=== PATIENT | female | born 1965 | race Caucasian/White ===

== ENCOUNTER 2017-08-16 13:07 | Emergency (ER) | payer OTHER ==
--- NOTE | 2017-08-16 15:14 | RAD REPORT ---
EXAM DESCRIPTION: RAD - Chest Single View - 08/16/2017 2:33 pm CLINICAL HISTORY: Possible foreign body, chest pain COMPARISON: May 2016 TECHNIQUE: AP portable chest image was obtained 1428 hours . FINDINGS: Lungs are clear. Heart and vasculature are normal. No measurable pleural effusion and no p neumothorax. No gross bony abnormality seen. No acute aortic findings suspected. IMPRESSION: No acute cardiopulmonary process. No significant interval change.
--- NOTE | 2017-08-16 15:16 | RAD REPORT ---
EXAM DESCRIPTION: RAD - Neck Soft Tissue - 08/16/2017 2:33 pm CLINICAL HISTORY: Neck pain, possible foreign body ingestion COMPARISON: None. TECHNIQUE: Frontal lateral views of the neck were obtained. FINDINGS: No prevertebral soft tissue thickening. No foreign body or abnormal air density. Epiglot tis is normal. Tonsillar and adenoid tissue within normal limits as well. Prominent physiologic randi cifications are present around the larynx. No acute bone findings seen. Patient has scoliosis involvi ng the cervical and upper thoracic spine. An acute bone process is not suspected. IMPRESSION: No foreign body or other acute finding.
--- NOTE | 2017-08-16 15:33 | EDPHYS ---
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 15:22 The patient presents to the emergency department with paranoia. Onset: The rn symptoms/episode began/occurred at an unknown time. Severity of symptoms: At their worst the symptoms were moderate in the emergency department the symptoms are unchanged. The patient has not experienced similar symptoms in the past. Patient reports last night felt like was having fiberoptic cables come out of her throat and was choking her, feels like there was fishing wire coming out of her chin, denies suicidal ideation, no hallucinations, reports chronic user of oxycodone, has been out for a few days, sees her pain management doctor in a few days. No head injury. States repeatedly she is not crazy and just needs an xray to make sure nothing is inside of her. . 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 - Social history:: Smoking status: Patient uses tobacco products, smokes one pack cigarettes per day. Patient/guardian denies using alcohol, street drugs. - Ebola Screening: : Patient negative for fever greater than or equal to 101.5 degrees Fahrenheit, and additional compatible Ebola Virus Disease symptoms. - Family history:: not pertinent. - Hospitalizations: : No recent hospitalization is reported. ROS: 15:22 Constitutional: Negative for fever, chills, and weight loss, Eyes: Negative for injury, rn pain, redness, and discharge, Neck: Negative for injury, pain, and swelling, Cardiovascular: Negative for chest pain, palpitations, and edema, Respiratory: Negative for shortness of breath, cough, wheezing, and pleuritic chest pain, Abdomen/GI: Negative for abdominal pain, nausea, vomiting, diarrhea, and constipation, Back: Negative for injury and pain, MS/Extremity: Negative for injury and deformity, Skin: Negative for injury, rash, and discoloration, Neuro: Negative for headache, weakness, and seizure, Psych: Negative for depression, anxiety, suicide ideation, homicidal ideation, and hallucinations. Exam: 15:22 Constitutional: This is a well developed, well nourished patient who is awake, alert, rn and in no acute distress, mildly agitated, scratching skin Head/Face: Normocephalic, atraumatic. Eyes: Pupils equal round and reactive to light, extra-ocular motions intact. Lids and lashes normal. Conjunctiva and sclera are non-icteric and not injected. Cornea within normal limits. Periorbital areas with no swelling, redness, or edema. Neck: Trachea midline, no thyromegaly or masses palpated, and no cervical lymphadenopathy. Supple, full range of motion without nuchal rigidity, or vertebral point tenderness. No Meningismus. Cardiovascular: Regular rate and rhythm with a normal S1 and S2. No gallops, murmurs, or rubs. Normal PMI, no JVD. No pulse deficits. Respiratory: Lungs have equal breath sounds bilaterally, clear to auscultation and percussion. No rales, rhonchi or wheezes noted. No increased work of breathing, no retractions or nasal flaring. Abdomen/GI: Soft, non-tender, with normal bowel sounds. No distension or tympany. No guarding or rebound. No evidence of tenderness throughout. Skin: multiple excoriations and healed sores all over body. MS/ Extremity: Pulses equal, no cyanosis. Neurovascular intact. Full, normal range of motion. Equal circumference. Neuro: Awake and alert, GCS 15, oriented to person, place, time, and situation. Cranial nerves II-XII grossly intact. Motor strength 5/5 in all extremities. Sensory grossly intact. Cerebellar exam normal. Normal gait. Vital Signs: 13:20 BP 172 / 92; Pulse 99; Resp 17; Temp 97.7; Pulse Ox 100% on R/A; Weight 68.04 kg; aj Height 5 ft. 8 in. (172.72 cm); 13:20 Body Mass Index 22.81 (68.04 kg, 172.72 cm) aj MDM: 13:58 Patient medically screened. rn 15:22 Differential diagnosis: drug withdrawal. acute psychotic break. Data reviewed: vital rn signs, nurses notes, lab test result(s), and as a result, I will discharge patient. Counseling: I had a detailed discussion with the patient and/or guardian regarding: the historical points, exam findings, and any diagnostic results supporting the discharge/admit diagnosis, radiology results, the need for outpatient follow up, to return to the emergency department if symptoms worsen or persist or if there are any questions or concerns that arise at home. Special discussion: I discussed with the patient/guardian in detail that at this point there is no indication for admission to the hospital. It is understood, however, that if the symptoms persist or worsen the patient needs to return immediately for re-evaluation. ED course: Most likely mild withdrawal from narcotics, no psych history but psychomotor agitation along with narcotic use, scratching/sores. Will dc home. Not suicidal/homicidal. No new meds. No trauma. Stable vitals. . 08/16 14:10 Order name: XRAY Neck Soft Tissue; Complete Time: 15:22 rn 08/16 14:10 Order name: XRAY Chest (1 view); Complete Time: 15:22 rn Administered Medications: No medications were administered Disposition: 08/16/17 15:32 Discharged to Home. Impression: Foreign Body sensation in throat. - Condition is Stable. - Medication Reconciliation Form, Thank You Letter, Antibiotic Education, Prescription Opioid Use form. - Follow up: Private Physician; When: As needed; Reason: Recheck today's complaints, Re-evaluation by your physician. - Problem is new. - Symptoms have improved. Signatures: Dispatcher [employer] EDMS Loree Cabrera RN RN aj Nieto, Roman, MD MD rn Seth, Rhonda rs2 Corrections: (The following items were deleted from the chart) 15:47 15:32 08/16/2017 15:32 Discharged to Home. Impression: Foreign Body sensation in rs2 throat. Condition is Stable. Forms are Medication Reconciliation Form, Thank You Letter, Antibiotic Education, Prescription Opioid Use. Follow up: Private Physician; When: As needed; Reason: Recheck today's complaints, Re-evaluation by your physician. Problem is new. Symptoms have improved. rn
--- NOTE | 2017-08-16 15:33 | ER ---
Nurse's Notes [facility] Name: Sophia Blanco Age: 52 yrs Sex: Female : 1965 Arrival Date: 08/16/2017 Time: 13:11 Bed 27 Private MD: None, None Diagnosis: Foreign Body sensation in throat Presentation: 08/16 13:18 Presenting complaint: Patient states: "fiber optics are coming out of my throat and I aj feel like metal is floating in my throat. It has been letting off these fumes". Patient has been out of her oxycodone since Monday. Transition of care: patient was not received from another setting of care. Onset of symptoms was August 11, 2017. Care prior to arrival: None. 13:18 Method Of Arrival: Ambulatory aj 13:18 Acuity: BENNY 2 aj 15:20 Risk Assessment: Do you want to hurt yourself or someone else? Patient reports no rs2 desire to harm self or others. Initial Sepsis Screen: Does the patient meet any 2 criteria? No. Patient's initial sepsis screen is negative. Does the patient have a suspected source of infection? No. Patient's initial sepsis screen is negative. Triage Assessment: 13:20 General: Appears in no apparent distress. comfortable, Behavior is calm, cooperative, aj appropriate for age. Pain: Complains of pain in neck. Neuro: Level of Consciousness is awake, obeys commands, Oriented to person, place, time, situation. Respiratory: Airway is patent Respiratory effort is even, unlabored, Respiratory pattern is regular, symmetrical. Derm: Skin is intact, is healthy with good turgor, Skin is pink, warm \\T\\ dry. normal. 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 - Social history:: Smoking status: Patient uses tobacco products, smokes one pack cigarettes per day. Patient/guardian denies using alcohol, street drugs. - Ebola Screening: : Patient negative for fever greater than or equal to 101.5 degrees Fahrenheit, and additional compatible Ebola Virus Disease symptoms. - Family history:: not pertinent. - Hospitalizations: : No recent hospitalization is reported. Screenin:44 Abuse screen: Denies threats or abuse. Nutritional screening: No deficits noted. rs2 Tuberculosis screening: No symptoms or risk factors identified. Fall Risk None identified. Assessment: 14:44 General: Appears in no apparent distress. comfortable, unkempt, Behavior is calm, rs2 cooperative, inappropriate for age, Pt describes "Chains and fiber optic tubes that they put in me at [facility]. I can feel them in my neck and my veins." Pt is oriented to self, time and place. Pt denies suicidal ideation. Pt is calm and cooperative. . Pain: Denies pain. Neuro: No deficits noted. Cardiovascular: No deficits noted. Respiratory: No deficits noted. GI: No deficits noted. : No deficits noted. EENT: No deficits noted. Musculoskeletal: No deficits noted. Psych: 15:21 Subjective: Patient's mood is Pt is calm and cooperative. Objective: Patient is rs2 cooperative, Speech is normal, Affect is appropriate. Interventions: Patient placed in hospital gown. Suicide Risk Assessment: Sad Person Scale: Sex of patient: Female: Score 0 points. Age of patient: Score 0 point if patient falls outside of specified age parameters. Depression: Score 0 point if signs of depression are not present. Previous Attempt: Score 0 point if patient has not previously attempted suicide. Safety Checks: Door is open. Door is closed to patient's room. Pt denies substance abuse. Commitment: Pt denies. Vital Signs: 13:20 BP 172 / 92; Pulse 99; Resp 17; Temp 97.7; Pulse Ox 100% on R/A; Weight 68.04 kg; aj Height 5 ft. 8 in. (172.72 cm); 13:20 Body Mass Index 22.81 (68.04 kg, 172.72 cm) aj ED Course: 13:11 Patient arrived in ED. sb2 13:11 None, None is Private Physician. sb2 13:19 Triage completed. aj 13:20 Arm band placed on left wrist. Patient placed in waiting room, Patient notified of wait aj time Patient Patient with family member. 13:58 Adolfo Resendez MD is Attending Physician. rn 14:30 X-ray completed. Portable x-ray completed in exam room. Patient tolerated procedure jb2 well. 14:31 XRAY Neck Soft Tissue In Process Unspecified. EDMS 14:31 XRAY Chest (1 view) In Process Unspecified. EDMS 14:43 Abiola Smallwood is Primary Nurse. rs2 14:44 Patient has correct armband on for positive identification. Bed in low position. Call rs2 light in reach. Side rails up X 1. 15:46 No provider procedures requiring assistance completed. Patient did not have IV access rs2 during this emergency room visit. Administered Medications: No medications were administered Outcome: 15:32 Discharge ordered by MD. rn 15:46 Discharged to home ambulatory. rs2 15:46 Condition: good 15:46 Discharge instructions given to patient, Instructed on discharge instructions, Demonstrated understanding of instructions. 15:47 Patient left the ED. rs2 Signatures: Dispatcher [employer] Loree Younger RN RN aj Buechter, Jesse jb2 Adolfo Resendez MD MD rn Seth, Rhonda rs2 Chuyita Mcnamara sb2 Corrections: (The following items were deleted from the chart) 13:22 13:20 Arm band placed on left wrist. Patient placed in an exam room, all carrizales
== END 2017-08-16 15:47 | disposition home or self-care (01) ==
LOC: ER 13:07
DX: R09.89 Other specified symptoms and signs involving the circulatory and respiratory systems (principal)
CPT/HCPCS: 70360; 71045; 99283

== ENCOUNTER 2017-08-23 10:07 | Emergency (ER) | payer OTHER ==
--- NOTE | 2017-08-23 10:58 | EDPHYS ---
Physician Documentation [facility] Name: Sophia Blanco Age: 52 yrs Sex: Female : 1965 Arrival Date: 08/23/2017 Time: 10:10 Bed 17 Private MD: None, None ED Physician Arian Villagran HPI: 08/23 11:26 This 52 yrs old Female presents to ER via Ambulatory with complaints of Leech snw Bites. 11:26 The patient's rash thought to be caused by Dermatitis Contact allergy. The rash is snw located on the suprasternal notch, right sternocleidomastoid, left sternocleidomastoid, right posterior aspect of neck, right lateral aspect of neck, left posterior aspect of neck and left lateral aspect neck,scalp. The rash can be described as patchy, oozing. Onset: The symptoms/episode began/occurred acutely, 1 month(s) ago. Associated signs and symptoms: Pertinent positives: burning sensation, itching. Severity of symptoms: At their worst the symptoms were severe in the emergency department the symptoms are unchanged. It is unknown whether or not the patient has recently seen a physician. 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 - Social history:: Smoking status: Patient uses tobacco products, smokes one-half pack cigarettes per day. - Ebola Screening: : No symptoms or risks identified at this time. ROS: 11:23 Constitutional: Negative for fever, chills, and weight loss, pt swears she has leeches snw breathing into and out of her. anxious Eyes: Negative for injury, pain, redness, and discharge, ENT: Negative for injury, pain, and discharge, Cardiovascular: Negative for chest pain, palpitations, and edema, Respiratory: Negative for shortness of breath, cough, wheezing, and pleuritic chest pain, Abdomen/GI: Negative for abdominal pain, nausea, vomiting, diarrhea, and constipation, Back: Negative for injury and pain, : Negative for injury, bleeding, discharge, and swelling, MS/Extremity: Negative for injury and deformity, Neuro: Negative for headache, weakness, numbness, tingling, and seizure. 11:23 Neck: Positive for rash, itching and feeling movements at neck and head. 11:23 Skin: Positive for rash, "leeches are crawling on and breathing out of me". Exam: 11:16 Head/Face: Normocephalic, atraumatic. Eyes: Pupils equal round and reactive to light, snw extra-ocular motions intact. Lids and lashes normal. Conjunctiva and sclera are non-icteric and not injected. Cornea within normal limits. Periorbital areas with no swelling, redness, or edema. ENT: Nares patent. No nasal discharge, no septal abnormalities noted. Tympanic membranes are normal and external auditory canals are clear. Oropharynx with no redness, swelling, or masses, exudates, or evidence of obstruction, uvula midline. Mucous membranes moist. Chest/axilla: Normal chest wall appearance and motion. Nontender with no deformity. No lesions are appreciated. Respiratory: Lungs have equal breath sounds bilaterally, clear to auscultation and percussion. No rales, rhonchi or wheezes noted. No increased work of breathing, no retractions or nasal flaring. Abdomen/GI: Soft, non-tender, with normal bowel sounds. No distension or tympany. No guarding or rebound. No evidence of tenderness throughout. Back: No spinal tenderness. No costovertebral tenderness. Full range of motion. MS/ Extremity: Pulses equal, no cyanosis. Neurovascular intact. Full, normal range of motion. Neuro: Awake and alert, GCS 15, oriented to person, place, time, and situation. Cranial nerves II-XII grossly intact. Motor strength 5/5 in all extremities. Sensory grossly intact. Cerebellar exam normal. Normal gait. 11:16 Constitutional: The patient appears agitated, anxious, unkempt. 11:16 Neck: External neck: rash, that is moderate, of the occiput, left mid cervical area, right mid cervical area, right posterior aspect of neck, right lateral aspect of neck, left posterior aspect of neck and left lateral aspect of neck, erythema, peeling, plaquing, oozing. 11:16 Cardiovascular: Rate: tachycardic, Pulses: no pulse deficits are appreciated, Heart sounds: normal. Vital Signs: 10:18 BP 156 / 101; Pulse 103; Resp 16 S; Temp 97.3(TE); Pulse Ox 98% on R/A; Weight 68.04 kg aa5 (R); Height 5 ft. 8 in. (172.72 cm) (R); Pain 8; 10:18 Body Mass Index 22.81 (68.04 kg, 172.72 cm) aa5 MDM: 10:20 Patient medically screened. snw 11:21 Data reviewed: vital signs, nurses notes. Data interpreted: Pulse oximetry: on room air snw is 98 %. Interpretation: normal. Counseling: I had a detailed discussion with the patient and/or guardian regarding: the historical points, exam findings, and any diagnostic results supporting the discharge/admit diagnosis, the presence of at least one elevated blood pressure reading (>120/80) during this emergency department visit, the need for outpatient follow up, to return to the emergency department if symptoms worsen or persist or if there are any questions or concerns that arise at home. Special discussion: I have referred the patient to see his PCP for further evaluation of high blood pressure. I discussed in detail with the patient the higher chance of wound infection based on his presenting history. Based on the history and exam findings, there is no indication for further emergent testing or inpatient evaluation. I discussed with the patient/guardian the need to see the primary care provider for further evaluation of the symptoms. I discussed with the patient/guardian the need to see the psychiatrist for further evaluation of the symptoms. Administered Medications: 11:10 Not Given (Patient Refused): Atarax 50 mg PO once tw2 Disposition: 12:18 Co-signature as Attending Physician, Arian Villagran MD I agree with the assessment and kdr plan of care. Disposition: 08/23/17 10:57 Discharged to Home. Impression: Pediculosis, unspecified. - Condition is Stable. - Discharge Instructions: Lice, Adult. - Prescriptions for lindane 1 % Topical lotion - apply 1 application by TOPICAL route once wkly leave on for 8-12 hr, then remove by thorough washing, repeat x 1 in one week; 1 Container. Zyrtec 10 mg Oral Tablet - take 1 tablet by ORAL route once daily As needed; 20 tablet. Bactrim DS 800- 160 mg Oral Tablet - take 1 tablet by ORAL route every 12 hours for 10 days; 20 tablet. - Medication Reconciliation Form, Thank You Letter, Antibiotic Education, Prescription Opioid Use form. - Follow up: Private Physician; When: 2 - 3 days; Reason: Recheck today's complaints, Continuance of care, Re-evaluation by your physician. Follow up: Emergency Department; When: As needed; Reason: Worsening of condition. Signatures: Arian Villagran MD MD [facility] Emiliana Drew, YADI-C NETWORKING ENGINEER-[employer] Shirin Crow, RN RN aa5 Anjelica Valladares RN RN tw2 Corrections: (The following items were deleted from the chart) 11:10 10:57 08/23/2017 10:57 Discharged to Home. Impression: Pediculosis, unspecified. tw2 Condition is Stable. Forms are Medication Reconciliation Form, Thank You Letter, Antibiotic Education, Prescription Opioid Use. Follow up: Private Physician; When: 2 - 3 days; Reason: Recheck today's complaints, Continuance of care, Re-evaluation by your physician. Follow up: Emergency Department; When: As needed; Reason: Worsening of condition. snw
--- NOTE | 2017-08-23 10:58 | ER ---
Nurse's Notes [facility] Name: Sophia Blanco Age: 52 yrs Sex: Female : 1965 Arrival Date: 08/23/2017 Time: 10:10 Bed 17 Private MD: None, None Diagnosis: Pediculosis, unspecified Presentation: 08/23 10:15 Presenting complaint: Patient states: "I feel like I have a leech or something inside aa5 my neck and it's bothering me". Redness noted to right side of neck. Transition of care: patient was not received from another setting of care. Onset of symptoms was August 09, 2017. Risk Assessment: Do you want to hurt yourself or someone else? Patient reports no desire to harm self or others. Initial Sepsis Screen: Does the patient meet any 2 criteria? No. Patient's initial sepsis screen is negative. Does the patient have a suspected source of infection? No. Patient's initial sepsis screen is negative. Care prior to arrival: None. 10:15 Method Of Arrival: Ambulatory aa5 10:15 Acuity: BENNY 4 aa5 Triage Assessment: 11:00 General: Appears unkempt, Behavior is anxious. 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 - Social history:: Smoking status: Patient uses tobacco products, smokes one-half pack cigarettes per day. - Ebola Screening: : No symptoms or risks identified at this time. Screenin:22 Abuse screen: Denies threats or abuse. Nutritional screening: No deficits noted. tw2 Tuberculosis screening: No symptoms or risk factors identified. Fall Risk None identified. Assessment: 11:00 General: Appears unkempt, Behavior is anxious. Pain: Complains of pain in left lateral tw2 aspect of neck and left posterior aspect of neck and right lateral aspect of neck and right posterior aspect of neck and occiput. Neuro: Level of Consciousness is awake, alert, obeys commands, Oriented to person, place, time, situation. Cardiovascular: Denies chest pain, shortness of breath, Capillary refill < 3 seconds Patient's skin is warm and dry. Respiratory: Airway is patent Respiratory effort is even, unlabored, Respiratory pattern is regular, symmetrical. GI: No signs and/or symptoms were reported involving the gastrointestinal system. : No signs and/or symptoms were reported regarding the genitourinary system. EENT: No signs and/or symptoms were reported regarding the EENT system. Derm: Rash noted that is on left posterior aspect of neck and right lateral aspect of neck and right posterior aspect of neck and occiput. Derm: Reports itching. Musculoskeletal: Range of motion: intact in all extremities. 11:10 Reassessment: pt refused medication, denied having lice states" i have a leech in my tw2 neck and yall are going to hear from my game warden", provider notified. 11:10 Reassessment: Patient appears in no apparent distress at this time. No changes from tw2 previously documented assessment. Patient and/or family updated on plan of care and expected duration. Pain level reassessed. Patient is alert, oriented x 3, equal unlabored respirations, skin warm/dry/pink. Vital Signs: 10:18 BP 156 / 101; Pulse 103; Resp 16 S; Temp 97.3(TE); Pulse Ox 98% on R/A; Weight 68.04 kg aa5 (R); Height 5 ft. 8 in. (172.72 cm) (R); Pain 8/10; 10:18 Body Mass Index 22.81 (68.04 kg, 172.72 cm) aa5 ED Course: 10:10 Patient arrived in ED. mr 10:11 None, None is Private Physician. mr 10:17 Triage completed. aa5 10:17 Arm band placed on. aa5 10:19 Emil[facility] Drew [facility]C [facility]. snw 10:19 Arian Villagran MD is Attending Physician. snw 10:20 Anjelica Valladares, LOUIS is Primary Nurse. tw2 10:22 Bed in low position. Pulse ox on. NIBP on. tw2 11:10 No provider procedures requiring assistance completed. tw2 11:10 Patient did not have IV access during this emergency room visit. tw2 Administered Medications: 11:10 Not Given (Patient Refused): Atarax 50 mg PO once tw2 Outcome: 10:57 Discharge ordered by MD. garcia 11:10 Patient left the ED. tw2 11:10 Discharged to home ambulatory. 11:10 Condition: stable 11:10 Discharge instructions given to patient, Instructed on discharge instructions, follow up and referral plans. medication usage, Demonstrated understanding of instructions, follow-up care, medications, Prescriptions given X 3. Signatures: Emiliana Drew, COCKTAIL LOUNGE MANAGER-C COCKTAIL LOUNGE MANAGER-Csnw Taylor Bingham mr Crow, Shirin, RN RN aa5 Anjelica Valladares RN RN tw2
[2017-08-23] MEDS ORDERED: hydrOXYzine HCl 25 MG TAB ONE (11:07)
== END 2017-08-23 11:10 | disposition home or self-care (01) ==
LOC: ER 10:07
DX: B85.2 Pediculosis, unspecified (principal); F17.210 Nicotine dependence, cigarettes, uncomplicated
CPT/HCPCS: 99283

== ENCOUNTER 2017-08-31 14:13 | Emergency (ER) | payer OTHER ==
[2017-08-31] MEDS ORDERED: METHYLPREDNISOLONE 125 MG INJ ONE (15:16)
[2017-08-31] MEDS ORDERED: LORazepam 2 MG/ML VIAL ONE (15:17)
[2017-08-31 15:35] LABS: Barbiturates NEGATIVE (NEGATIVE); Benzodiazepines NEGATIVE (NEGATIVE); Cocaine NEGATIVE (NEGATIVE); METHAMPHETAM NEGATIVE (NEGATIVE); Opiates POSITIVE (NEGATIVE); Phencyclidine NEGATIVE (NEGATIVE); THC Cannibis NEGATIVE (NEGATIVE)
[2017-08-31 15:47] LABS: Potassium 3.7 mEq/L (3.6-5.0)
[2017-08-31 15:50] LABS: Absolute Lymphocytes (CBC) 1.4 K/uL (0.7-4.9); Absolute Monocytes 0.8 K/uL (0.1-1.3); Basophils % 0.3 % (0-1.3); Eosinophils % 0.2 % (0-4.4); Hematocrit 38.4 % (36.0-45.0); Lymphocytes % 11.7 % (15.3-44.8); MCH 33.1 pg (27.0-35.0); MCV 100.9 fL (80-100); MPV 9.4 fL (7.6-11.3); Monocytes % 6.8 % (3.3-12.3); RBC Red Blood Cell Count 3.81 M/uL (3.86-4.86)
--- NOTE | 2017-08-31 16:45 | EDPHYS ---
Physician Documentation [facility] Name: Sophia Blanco Age: 52 yrs Sex: Female : 1965 Arrival Date: 08/31/2017 Time: 14:24 Bed 18 Private MD: ED Physician Sal Goldsmith HPI: 08/31 16:46 This 52 yrs old Female presents to ER via EMS with complaints of Skin Sore(s).jr8 16:46 The patient's rash thought to be caused by an unknown cause. The rash is located on the jr8 face, scalp, chest and abdomen. The rash can be described as erythematous, raised, excoriated. Onset: The symptoms/episode began/occurred gradually, 1 week(s) ago. Associated signs and symptoms: Pertinent positives: itching. Severity of symptoms: At their worst the symptoms were moderate in the emergency department the symptoms are unchanged. The patient has not experienced similar symptoms in the past. The patient has been recently seen by a physician:. Patient stated that she stared with rash to neck about 1 week ago. Mild in nature. Stated that she had to go to [facility] ED because it had become worse. Was put on cream and antibiotics. Mother of patient stated that the medicine has been working. Stated that she acutely got worse today. Patient stated that she feels as if there is "plastic accordions" in her neck and abdomen. Health Administrator has seen patient in past and diagnosed with lupus but currently not medicated . 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 - Social history:: Smoking status: Patient uses tobacco products, smokes one-half pack cigarettes per day. - Ebola Screening: : Patient negative for fever greater than or equal to 101.5 degrees Fahrenheit, and additional compatible Ebola Virus Disease symptoms Patient denies exposure to infectious person Patient denies travel to an Ebola-affected area in the 21 days before illness onset No symptoms or risks identified at this time. ROS: 16:46 Eyes: Negative for injury, pain, redness, and discharge, ENT: Negative for injury, jr8 pain, and discharge, Neck: Negative for injury, pain, and swelling, Cardiovascular: Negative for chest pain, palpitations, and edema, Respiratory: Negative for shortness of breath, cough, wheezing, and pleuritic chest pain, Abdomen/GI: Negative for abdominal pain, nausea, vomiting, diarrhea, and constipation, Back: Negative for injury and pain, MS/Extremity: Negative for injury and deformity, Neuro: Negative for headache, weakness, numbness, tingling, and seizure. 16:46 Skin: Positive for rash. Exam: 16:46 Eyes: Pupils equal round and reactive to light, extra-ocular motions intact. Lids and jr8 lashes normal. Conjunctiva and sclera are non-icteric and not injected. Cornea within normal limits. Periorbital areas with no swelling, redness, or edema. ENT: Nares patent. No nasal discharge, no septal abnormalities noted. Tympanic membranes are normal and external auditory canals are clear. Oropharynx with no redness, swelling, or masses, exudates, or evidence of obstruction, uvula midline. Mucous membranes moist. Neck: Trachea midline, no thyromegaly or masses palpated, and no cervical lymphadenopathy. Supple, full range of motion without nuchal rigidity, or vertebral point tenderness. No Meningismus. Cardiovascular: Regular rate and rhythm with a normal S1 and S2. No gallops, murmurs, or rubs. Normal PMI, no JVD. No pulse deficits. Respiratory: Lungs have equal breath sounds bilaterally, clear to auscultation and percussion. No rales, rhonchi or wheezes noted. No increased work of breathing, no retractions or nasal flaring. Abdomen/GI: Soft, non-tender, with normal bowel sounds. No distension or tympany. No guarding or rebound. No evidence of tenderness throughout. Back: No spinal tenderness. No costovertebral tenderness. Full range of motion. MS/ Extremity: Pulses equal, no cyanosis. Neurovascular intact. Full, normal range of motion. Neuro: Awake and alert, GCS 15, oriented to person, place, time, and situation. Cranial nerves II-XII grossly intact. Motor strength 5/5 in all extremities. Sensory grossly intact. Cerebellar exam normal. Normal gait. 16:46 Skin: Patient has excoriated and scabbed skin to neck, chest, and abdomen. On the back and sides of neck along with base of skull patient has raised plaque like scabbed rash. No cellulitis noted . Vital Signs: 14:29 BP 168 / 104; Pulse 123; Resp 20; Temp 98.3(O); Pulse Ox 100% on R/A; Weight 70.31 kg; aj Height 5 ft. 6 in. (167.64 cm); 15:57 BP 120 / 84; Pulse 85; Resp 19; Pulse Ox 100% on R/A; aj 16:17 BP 119 / 88; Pulse 94; Resp 16; Pulse Ox 98% on R/A; aj 14:29 Body Mass Index 25.02 (70.31 kg, 167.64 cm) aj MDM: 14:28 Patient medically screened. jr8 16:44 Data reviewed: vital signs, nurses notes, lab test result(s), and as a result, I will jr8 discharge patient. Data interpreted: Pulse oximetry: on room air is 98 %. Interpretation: normal. Counseling: I had a detailed discussion with the patient and/or guardian regarding: the historical points, exam findings, and any diagnostic results supporting the discharge/admit diagnosis, lab results, the need for outpatient follow up, a java technical manager, to return to the emergency department if symptoms worsen or persist or if there are any questions or concerns that arise at home. 16:46 ED course: Discussed with patient that she needs to follow up with java technical manager for jr8 further examination and possible biopsy. Family made appointment for her for this Monday . 08/31 15:12 Order name: CBC with Diff; Complete Time: 16:08/31 15:12 Order name: Basic Metabolic Panel; Complete Time: 16:8 08/31 15:12 Order name: IV; Complete Time: 15:08/31 15:13 Order name: UDS; Complete Time: : Administered Medications: 15:26 Drug: SOLU-Medrol 125 mg Route: IVP; Site: right forearm; aj 15:57 Follow up: Response: Anxiety decreased aj 15:27 Drug: Ativan 1 mg Route: IVP; Site: right forearm; aj 15:56 Follow up: Response: No adverse reaction; Pain is decreased aj Disposition: 08/31/17 16:44 Discharged to Home. Impression: Rash and other nonspecific skin eruption. - Condition is Stable. - Discharge Instructions: Rash. - Prescriptions for Prednisone 20 mg Oral Tablet - take 3 tablet by ORAL route once daily for 5 days; 15 tablet. - Medication Reconciliation Form, Thank You Letter, Antibiotic Education, Prescription Opioid Use form. - Follow up: Private Physician; When: 2 - 3 days; Reason: Recheck today's complaints, Continuance of care, Re-evaluation by your physician. - Problem is new. - Symptoms have improved. Addendum: 09/08/2017 11:30 Co-signature as Attending Physician, Sal Goldsmith MD. g s Signatures: Dispatcher [employer] EDLoree Erickson, RN RN Jovany Haile PA PA jr8 Sal Goldsmith MD MD gs Corrections: (The following items were deleted from the chart) 08/31 17:02 16:44 08/31/2017 16:44 Discharged to Home. Impression: Rash and other nonspecific skin aj eruption. Condition is Stable. Forms are Medication Reconciliation Form, Thank You Letter, Antibiotic Education, Prescription Opioid Use. Follow up: Private Physician; When: 2 - 3 days; Reason: Recheck today's complaints, Continuance of care, Re-evaluation by your physician. Problem is new. Symptoms have improved. jr8
--- NOTE | 2017-08-31 16:45 | ER ---
Nurse's Notes [facility] Name: Sophia Blanco Age: 52 yrs Sex: Female : 1965 Arrival Date: 08/31/2017 Time: 14:24 Bed 18 Private MD: Diagnosis: Rash and other nonspecific skin eruption Presentation: 08/31 14:24 Presenting complaint: Patient states: Believe that [facility] "did surgery on me and put aj plastic in my neck and I just want it out." Scratches and dried blood noted to bilateral neck and hair line circumferentially. Patient believes a pain pump was implanted without her knowledge or consent. Transition of care: patient was not received from another setting of care. Onset of symptoms. Risk Assessment: Do you want to hurt yourself or someone else? Other: Denies desire to harm self. Patient continues to claw at her neck to "get out the plastic". Care prior to arrival: None. 14:24 Method Of Arrival: EMS: [facility] 14:24 Acuity: BENNY 3 aj Triage Assessment: 14:29 General: Appears in no apparent distress. comfortable, Behavior is calm, cooperative, aj appropriate for age. Pain: Complains of pain in right posterior aspect of neck, right lateral aspect of neck, right anterior aspect of neck, left posterior aspect of neck, left lateral aspect of neck and left anterior aspect of neck. Neuro: Level of Consciousness is awake, alert, obeys commands, Oriented to person, place, time, situation, Appropriate for age. Respiratory: Airway is patent Respiratory effort is even, unlabored, Respiratory pattern is regular, symmetrical. : No signs and/or symptoms were reported regarding the genitourinary system. Derm: scratches and scabs noted to bo bilaterally and circumferentially around head Reports itching. 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 - Social history:: Smoking status: Patient uses tobacco products, smokes one-half pack cigarettes per day. - Ebola Screening: : Patient negative for fever greater than or equal to 101.5 degrees Fahrenheit, and additional compatible Ebola Virus Disease symptoms Patient denies exposure to infectious person Patient denies travel to an Ebola-affected area in the 21 days before illness onset No symptoms or risks identified at this time. Screenin:28 Abuse screen: Denies threats or abuse. Denies injuries from another. Nutritional aj screening: No deficits noted. Tuberculosis screening: No symptoms or risk factors identified. Fall Risk None identified. Assessment: 15:28 Reassessment: see triage. aj 17:00 Reassessment: Patient appears in no apparent distress at this time. Patient and/or aj family updated on plan of care and expected duration. Pain level reassessed. Patient is alert, oriented x 3, equal unlabored respirations, skin warm/dry/pink. Patient reports that she is feeling better and has made an appointment with glass tube bender for her lupus. Patient states feeling better. Patient states symptoms have improved. Vital Signs: 14:29 BP 168 / 104; Pulse 123; Resp 20; Temp 98.3(O); Pulse Ox 100% on R/A; Weight 70.31 kg; aj Height 5 ft. 6 in. (167.64 cm); 15:57 BP 120 / 84; Pulse 85; Resp 19; Pulse Ox 100% on R/A; aj 16:17 BP 119 / 88; Pulse 94; Resp 16; Pulse Ox 98% on R/A; aj 14:29 Body Mass Index 25.02 (70.31 kg, 167.64 cm) aj ED Course: 14:24 Patient arrived in ED. aj 14:27 Triage completed. aj 14:28 Jovany Riojas PA is PHCP. jr8 14:28 Sal Goldsmith MD is Attending Physician. jr8 14:29 Arm band placed on left wrist. Patient placed in an exam room. aj 14:35 Loree Cabrera, RN is Primary Nurse. aj 15:28 Inserted saline lock: 20 gauge in right forearm, using aseptic technique. Blood aj collected. 17:00 Patient has correct armband on for positive identification. aj 17:00 No provider procedures requiring assistance completed. IV discontinued, intact, aj bleeding controlled, No redness/swelling at site. Pressure dressing applied. Administered Medications: 15: Drug: SOLU-Medrol 125 mg Route: IVP; Site: right forearm; aj 15:57 Follow up: Response: Anxiety decreased aj 15: Drug: Ativan 1 mg Route: IVP; Site: right forearm; aj 15:56 Follow up: Response: No adverse reaction; Pain is decreased all Outcome: 16:44 Discharge ordered by MD. baeza 17:00 Discharged to home ambulatory, with family. aj 17: Condition: good 17:00 Discharge instructions given to patient, family, Instructed on discharge instructions, follow up and referral plans. medication usage, wound care, Demonstrated understanding of instructions, follow-up care, medications, wound care, Prescriptions given X 1. 17:02 Patient left the ED. aj Signatures: Loree Cabrera, RN RN Jovany Haile PA PA jr8
== END 2017-08-31 17:02 | disposition home or self-care (01) ==
LOC: ER 14:13
DX: R21 Rash and other nonspecific skin eruption (principal); F17.210 Nicotine dependence, cigarettes, uncomplicated
CPT/HCPCS: 36415; 80048; 80307 ×9; 85025; 96374; 96375; 99284; J2930

== ENCOUNTER 2017-09-10 17:43 | Emergency (ER) | payer OTHER ==
--- NOTE | 2017-09-10 18:14 | ER ---
Nurse's Notes [facility] Name: Sophia Blanco Age: 52 yrs Sex: Female : 1965 Arrival Date: 09/10/2017 Time: 17:45 Bed 24 Private MD: Diagnosis: Unspecified psychosis not due to a substance or known physiological condition Presentation: 09/10 17:54 Presenting complaint: EMS states: EMS states they were called out by PD for well check mb3 on pt. States that pt is thinking something is in her head and hanging down inside her causing her head to itch. Pt frantic and scratching her scalp, open wounds present to the back of both ears, back of head, and back of neck. Transition of care: patient was not received from another setting of care. Onset of symptoms was August 03, 2017. Risk Assessment: Do you want to hurt yourself or someone else? Patient reports no desire to harm self or others. Initial Sepsis Screen: Does the patient meet any 2 criteria? No. Patient's initial sepsis screen is negative. Does the patient have a suspected source of infection? No. Patient's initial sepsis screen is negative. Care prior to arrival: None. 17:54 Method Of Arrival: EMS: [facility] mb3 17:54 Acuity: BENNY 3 mb3 Triage Assessment: 18:01 General: Appears unkempt, Behavior is agitated, fussy, uncooperative. Pain: Denies mb3 pain. EENT: No signs and/or symptoms were reported regarding the EENT system. Neuro: Level of Consciousness is awake, alert, Oriented to person, place, time, situation, Appropriate for age. Cardiovascular: No deficits noted. Respiratory: No deficits noted. GI: No deficits noted. No signs and/or symptoms were reported involving the gastrointestinal system. : No deficits noted. No signs and/or symptoms were reported regarding the genitourinary system. Derm: Skin Pt has rash to back of neck. Welps from pt scratching her scalp and back of both ears present. small shallow laceration above left ear from fingernail also present. red scratch gutierrez are all over her neck, scalp and ears. Pt frantic about something hanging down inside her going out of her chin, causing her to itch. 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 - Social history:: Smoking status: Patient/guardian denies using tobacco. - Ebola Screening: : Patient denies travel to an Ebola-affected area in the 21 days before illness onset No symptoms or risks identified at this time. Assessment: 18:05 Reassessment: during triage and assessment pt got upset at Dr Goldsmith when he questioned mb3 her story, got up and walked out. Assessment not finished. Vital Signs: 18:04 BP 132 / 97; Pulse 118; Resp 18; Temp 97.5; Pulse Ox 98% on R/A; Weight 68.49 kg; mb3 Height 5 ft. 8 in. (172.72 cm); Pain 0/10; 18:04 Body Mass Index 22.96 (68.49 kg, 172.72 cm) mb3 ED Course: 17:45 Patient arrived in ED. em1 17:48 Sal Goldsmith MD is Attending Physician. 17:53 Humberto Machado, RN is Primary Nurse. mb3 17:59 Triage completed. mb3 18:05 Arm band placed on right wrist. mb3 Administered Medications: No medications were administered Outcome: 18:14 Discharge ordered by . gs 18:17 Patient left the ED. mb3 Signatures: Sean Barton em1 Sal Goldsmith MD MD Humberto Machado, RN RN mb3
--- NOTE | 2017-09-10 18:14 | EDPHYS ---
Physician Documentation [facility] Name: Sophia Blanco Age: 52 yrs Sex: Female : 1965 Arrival Date: 09/10/2017 Time: 17:45 Bed 24 Private MD: ED Physician Sal Goldsmith HPI: 09/10 18:01 This 52 yrs old Female presents to ER via EMS with complaints of THINGS gs COMING OUT OF HER SKIN THAT ARE NOT PART OF HER. 18:01 Onset: The symptoms/episode began/occurred 1 month(s) ago, and became persistent. gs Associated signs and symptoms: Pertinent positives; delusions, hallucinations, paranoia. Associated signs and symptoms: Pertinent negatives: suicide ideation. Severity of symptoms: At their worst the symptoms were moderate in the emergency department the symptoms are unchanged. The patient has experienced similar episodes in the past, several times, SEEN HERE, [facility], SAYS WAS IN [place]OSPITAL IN [place] FOR SAME LAST WEEK. SAYS SOMEONE MADE TUBES COME OUT OF CHIN AND SIDE OF FACE THAT SOMEONE PUT THINGS THROUGH. KEEPS SAYING CANT YOU SEE THESE THINGS COMING OUT OF MY FACE. KEEPS SCRATCHING FOREHEAD HAS BLEEDING SUPERFICIAL LAC ABOVE RIGHT EAR. MANAGER CONTACT: 18:04 LMP N/A - mb3 Historical: - Allergies: 18:00 No Known Allergies; mb3 - Immunization history:: Adult Immunizations up to date. - Social history:: Smoking status: Patient/guardian denies using tobacco. - Ebola Screening: : Patient denies travel to an Ebola-affected area in the 21 days before illness onset No symptoms or risks identified at this time. ROS: 18:01 All other systems are negative. gs Exam: 18:01 Eyes: Pupils equal round and reactive to light, extra-ocular motions intact. Lids and gs lashes normal. Conjunctiva and sclera are non-icteric and not injected. Cornea within normal limits. Periorbital areas with no swelling, redness, or edema. ENT: Nares patent. No nasal discharge, no septal abnormalities noted. Tympanic membranes are normal and external auditory canals are clear. Oropharynx with no redness, swelling, or masses, exudates, or evidence of obstruction, uvula midline. Mucous membranes moist. Neck: Trachea midline, no thyromegaly or masses palpated, and no cervical lymphadenopathy. Supple, full range of motion without nuchal rigidity, or vertebral point tenderness. No Meningismus. Chest/axilla: Normal chest wall appearance and motion. Nontender with no deformity. No lesions are appreciated. 18:01 Respiratory: Lungs have equal breath sounds bilaterally, clear to auscultation and percussion. No rales, rhonchi or wheezes noted. No increased work of breathing, no retractions or nasal flaring. Abdomen/GI: Soft, non-tender, with normal bowel sounds. No distension or tympany. No guarding or rebound. No evidence of tenderness throughout. Back: No spinal tenderness. No costovertebral tenderness. Full range of motion. MS/ Extremity: Pulses equal, no cyanosis. Neurovascular intact. Full, normal range of motion. 18:01 Constitutional: The patient appears alert, awake. 18:01 Head/face: Noted is a laceration(s), that is superficial, of the right ear. 18:01 Cardiovascular: Rate: tachycardic, Rhythm: regular. 18:01 Skin: DISCOID RASH BACK OF NECK. 18:01 Neuro: Orientation: to person, place, time, situation, Cranial nerves: CN II- XII are normal as tested, Cerebellar function: normal finger to nose testing, Motor: moves all fours, strength is normal, Sensation: is normal, Gait: is steady, at a normal pace. 18:01 Psych: Behavior/mood is anxious, Oriented to person, place, time, Patient has no thoughts/intents to harm self or others. Judgement / Insight is impaired. Delusions/hallucinations are present and described as PER HPI. Vital Signs: 18:04 BP 132 / 97; Pulse 118; Resp 18; Temp 97.5; Pulse Ox 98% on R/A; Weight 68.49 kg; mb3 Height 5 ft. 8 in. (172.72 cm); Pain 0/10; 18:04 Body Mass Index 22.96 (68.49 kg, 172.72 cm) mb3 MDM: 17:57 Patient medically screened. gs 18:01 Differential diagnosis: acute psychotic break, depression, psychosis secondary to gs non-compliance, DRUG EFFECT. Data reviewed: vital signs, nurses notes. ED course: TRIED TO REASON WITH PATIENT TO DEAL WITH HER DELUSIONS CONCERN FOR PSYCHOSIS, LUPUS CEREBRITIS, DRUG INTOXICATION. ED course: PT LEFT STATES WILL GO TO ANOTHER FACILITY.. Administered Medications: No medications were administered Disposition: 09/10/17 18:14 Discharged to Home. Impression: Unspecified psychosis not due to a substance or known physiological condition. - Condition is Stable. - Discharge Instructions: Psychosis. - Medication Reconciliation Form, Thank You Letter, Antibiotic Education, Prescription Opioid Use form. - Follow up: Private Physician; When: 2 - 3 days; Reason: Re-evaluation by your physician. Signatures: Sal Goldsmith MD MD gs Barnett, Mark RN RN mb3 Corrections: (The following items were deleted from the chart) 18:17 18:14 09/10/2017 18:14 Discharged to Home. Impression: Unspecified psychosis not due to mb3 a substance or known physiological condition. Condition is Stable. Forms are Medication Reconciliation Form, Thank You Letter, Antibiotic Education, Prescription Opioid Use. Follow up: Private Physician; When: 2 - 3 days; Reason: Re-evaluation by your physician. gs
== END 2017-09-10 18:17 | disposition home or self-care (01) ==
LOC: ER 17:43
DX: F29 Unspecified psychosis not due to a substance or known physiological condition (principal)
CPT/HCPCS: 99283

== ENCOUNTER 2021-09-20 11:43 | Emergency (ER) | payer OTHER ==
--- OUTSIDE RECORDS SUMMARY | 2021-09-20 11:48 | XMS REPORT | Continuity of Care Document ---
:1965 Author Organization [facility] t Address [address] [place] [address] Care Team Providers Name Role Phone CAITLYN NASH Primary Care Physician [facility]available [facility] Attending Clinician Unavailable SHEILA JAMISON Attending Clinician Unavailable Macrina VELÁZQUEZ Attending Clinician Unavailable Macrina Velázquez NP Attending Clinician Doctor Unassigned, Name Attending Clinician Unavailable DR ORA Attending Clinician Unavailable Bonny MYERS, A Attending Clinician Unavailable KALYN Attending Clinician Unavailable Sebastian NICE Attending Clinician Ayesha Denny MD Attending Clinician Kalyn NICE Attending Clinician Ayesha CLARK Attending Clinician Unavailable Amber PAC, S Attending Clinician Xiao ALEXANDER Attending Clinician Unavailable MS Roxane KAUR Attending Clinician Unavailable Macrina VELÁZQUEZ Admitting Clinician Unavailable DR ORA Admitting Clinician Unavailable KALYN Admitting Clinician Unavailable Kalyn NICE Admitting Clinician Xaio ALEXANDER Admitting Clinician Unavailable MS Roxane KAUR Admitting Clinician Unavailable Payers Payer Name Policy Type Policy Number Effective Date Expiration Date S ource 0512 [id number] 1959 00:00:00 0733 [id number] 1959 00:00:00 Problems Condition Condition Condition Status Onset Resolution Last Treating Co mments Source Name Details Category Date Date Treatment Clinician Date Failure of Failure of Disease Active U nivers outpatient outpatient 5-30 it y [facility] Cellulitis Cellulitis Disease Active U nivers 30 ity of 00:00: [address] Failure of Failure of Disease Active U nivers outpatient outpatient 5-30 [place] [facility] Allergies, Adverse Reactions, Alerts Allergy Allergy Status Severity Reaction(s) Onset Inactive Treating Comm ents Source Name Type Date Date Clinician NO KNOWN Drug Active Univers ALLERGIE Class ity of S [facility] No Known DA Active [facility] s Social History Social Habit Start Date Stop Date Quantity Comments Source History of tobacco Cigarette Smoker University of use [facility] Exposure to Not sure [place] of SARS-CoV-2 (event) [facility] Alcohol intake 2021-05-08 2021-05-08 Current drinker Unive rsity of 00:00:00 00:00:00 of alcohol [facility] (finding) [place] Tobacco use and 2017-08-23 2017-08-23 Never used Universit y of exposure 00:00:00 00:00:00 [facility] Cigarettes smoked 2017-08-23 2017-08-23 Univers ity of current (pack per 00:00:00 00:00:00 ) - Reported Branch Cigarette 2017-08-23 2017-08-23 University of pack-years 00:00:00 00:00:00 [facility] Sex [birth year] At [birth year] Universit y of 00:00:00 00:00:00 [facility] Smoking Status Start Date Stop Date Source Current every day smoker 2017-08-23 00:00:00 Uni versity of [facility] Medications Ordered Filled Start Stop Current Ordering Indication Dosage Frequency Signature Comments Components Source Medication Medication Date Date Medication? Clinician (SIG) Name Name ibuprofen Yes ibuprofen Uni vers 800 mg 2-14 800 mg ity of tablet 06:38: tablet [address] methylPREDN Yes [id number] Take by [facility] 4 05-09 9108 mouth ity of mg tablets 00:00: [place] CTIONS. Medical follow Branch package directions methylPREDN Yes [id number] Take by [facility] 4 05-09 9108 mouth ity of mg tablets 00:00: [place] CTIONS. Medical follow Branch package directions ibuprofen 2021- No 600mg 600 mg, Uni vers (IBU) 05-08 02-12 Oral, ity of tablet 600 23:00: 21:57 ONCE, 1 [place] mg 00 :00 dose, On Medical Sat Branch 05/08/21 at 1700, MANFRED ibuprofen Yes ibuprofen Uni vers 800 mg 12 800 mg ity of tablet 17:17: tablet [place] 30 Medical Branch oxyCODONE 0 2020- No 15mg Take 15 mg U nivers (ROXICODONE 6-25 06-25 by mouth ity of ) 15 mg 16:44: 00:00 every 4 [place] immediate 26 :00 (four) Medical release hours as Branch tablet needed for Pain. pregabalin 0 2020- No 200mg Take 200 U nivers (LYRICA) 6-25 06-25 mg by ity of 200 mg 16:44: 00:00 mouth 3 [place] capsule 26 :00 (three) Medical times Branch daily. ibuprofen 0 2020- No 800mg Take 800 Un sosa 800 mg 6-25 06-25 mg by ity of tablet 16:44: 00:00 mouth [place] 26 :00 every 6 Medical (six) Branch hours as needed. baclofen 10 2019-0 2020- No 10mg Take 10 mg Univers mg tablet 6-25 06-25 by mouth 3 ity of 16:44: 00:00 (three) [place] 26 :00 times Medical daily. Branch lactobacill 2019-0 Yes [id number] 1{tbl} Take 1 Univers us 6-25 tablet by ity of acidophilus 00:00: mouth 2 [place] 25 million 00 (two) Medical cell -100 times Branch mg captab daily. silver 2019-0 Yes [id number] Apply to U nivers sulfADIAZIN 6-25 area(s) 2 ity of E 1 % cream 00:00: (two) [place] 00 times Medical daily. Branch lactobacill 2019-0 Yes [id number] 1{tbl} Take 1 Univers us 6-25 tablet by ity of acidophilus 00:00: mouth 2 [place] 25 million 00 (two) Medical cell -100 times Branch mg captab daily. silver 2020-0 Yes [id number] Apply to U nivers sulfADIAZIN 6-25 area(s) 2 ity of E 1 % cream 00:00: (two) [place] 00 times Medical daily. Branch lactobacill 2020-0 Yes [id number] 1{tbl} Take 1 Univers us 6-25 tablet by ity of acidophilus 00:00: mouth 2 [place] 25 million 00 (two) Medical cell -100 times Branch mg captab daily. lactobacill 2020-0 Yes [id number] 1{tbl} Take 1 Univers us 6-25 tablet by ity of acidophilus 00:00: mouth 2 [place] 25 million 00 (two) Medical cell -100 times Branch mg captab daily. lactobacill 2020-0 Yes [id number] 1{tbl} Take 1 Univers us 6-25 tablet by ity of acidophilus 00:00: mouth 2 [place] 25 million 00 (two) Medical cell -100 times Branch mg captab daily. silver 2020-0 Yes [id number] Apply to U nivers sulfADIAZIN 6-25 area(s) 2 ity of E 1 % cream 00:00: (two) [place] 00 times Medical daily. Branch silver 2020-0 2021- No [id number] Apply to Univers sulfADIAZIN 6-25 02-12 area(s) 2 it y of E 1 % cream 00:00: 00:00 (two) [place] 00 :00 times Medical daily. Branch doxycycline 2020-0 2020- No [id number] 100mg Take 1 Univers hyclate 100 6-25 07-06 capsule by i ty of mg capsule 00:00: 04:59 mouth 2 [place] 00 :00 (two) Medical times Branch daily for 10 days. doxycycline 2020-0 2020- No [id number] 100mg Take 1 Univers hyclate 100 6-25 07-06 capsule by i ty of mg capsule 00:00: 04:59 mouth 2 [place] 00 :00 (two) Medical times Branch daily for 10 days. silver 2020-0 Yes Topical, Univers sulfADIAZIN 6-24 BID, First it y of E 17:45: dose on [place] (SILVADENE) 00 Wed Medical 1 % cream 09/18/19 at [facility] ch 1245, Until Discontinu ed, Routine enoxaparin 2020-0 Yes 40mg 40 mg, Unive rs (LOVENOX) 09-16 Subcutaneo ity of injection 14:00: [place] 40 [place] 00 First dose Medical on [facility] Branch 09/17/19 at 0900, Until Discontinu ed, Routine docusate 2020-0 Yes 100mg 100 mg, Unive rs (COLACE) 09-16 Oral, BID, ity o f capsule 100 13:00: First dose [place] mg 00 on Mon Medical 09/17/19 at Branch 0800, Until Discontinu ed, Routine piperacilli 2020-0 Yes 3.375g 3.375 g, Univers n-tazobacta 09-16 IV ity of m (ZOSYN) 08:15: [place] 3.375 00 Q6H ABX, Medical gram/50 mL First dose [facility] Piggyback on Mon RTU 3.375 g 09/17/19 at 0315, Until Discontinu ed, 50 mL
R [address]ne for Anti-Infec tive: Documented Infection< br>Documen josey Infection Site: Skin / Soft Tissue
Duration of Therapy: Other (see Comments) lactobacill 2020-0 Yes 1{tbl} 1 tablet, Univers us 09-16 Oral, BID, ity of acidophilus 07:15: First dose (ACIDOPHILL 00 on [facility] l US) 25 09/17/19 at Branch million 0215, cell -100 Until mg captab 1 Discontinu tablet ed, Routine ondansetron 2020-0 Yes 4mg 4 mg, Slow Univers (ZOFRAN 09-16 IV Push, ity of (PF)) 07:14: Q6HPRN, [place] injection 4 21 Starting Medi randi mg [facility] 09/17/19 at 0214, Until Discontinu ed, Routine, Nausea and Vomiting (N/V) vancomycin 2020-0 Yes 1000mg 1,000 mg, Univers 1000 mg in 09-16 IV ity of NS 200 mL 03:15: [place] RT[place] IV 00 Q12H ABX, Medical Piggyback First dose Bran ch 1,000 mg on 09/16/19 at 2215, Until Discontinu ed
Reas on for Anti-Infec tive: Documented Infection< br>Documen josey Infection Site: Skin / Soft Tissue< br>Duratio n of Therapy: Other (see Comments) piperacilli 2020- No 3.375g 3.375 g, Univers n-tazobacta 09-16 IV ity of m (ZOSYN) 03:15: 02:50 [place]back, [place] 3.375 00 :00 ONCE, 1 Medical gram/50 mL dose, Mon Bran ch Piggyback 09/16/19 at RTU 3.375 g 2215, 50 mL
Reas on for Anti-Infec tive: Documented Infection< br>Documen josey Infection Site: Skin / Soft Tissue
Duration of Therapy: Other (see Comments) iohexol 2019- No 100mL 100 mL, Unive rs (OMNIPAQUE 09-16 Intravenou it y of 350 00:15: 23:53 s, ONCE, 1 [place] BULK-100 00 :00 dose, Mon Medica l mL) 09/16/19 at Branch injection 1915, 100 mL Routine diclofenac 2019- No [id number] 75mg Take 1 Univers 75 mg EC 11-19 9103 tablet by ity o f tablet 00:00: 04:59 mouth 2 [place] 00 :00 (two) Medical times Branch daily with meals for 30 days. diclofenac 2018- No [id number] 75mg Take 1 Univers 75 mg EC 11-19 9103 tablet by ity o f tablet 00:00: 04:59 mouth 2 [place] 00 :00 (two) Medical times Branch daily with meals for 30 days. diclofenac 2019- No [id number] 75mg Take 1 Univers 75 mg EC 11-19 9103 tablet by ity o f tablet 00:00: 04:59 mouth 2 [place] 00 :00 (two) Medical times Branch daily with meals for 30 days. Nitrofurant Yes 100mg Take 1 Uni vers oin&Nit. 6-19 capsule by ity o f [place]roc[place] 00:00: mouth 2 [place] (MACROBID) 00 (two) Medical 100 mg times Branch capsule daily. Nitrofurant 2018-0 Yes 100mg Take 1 Uni vers oin&Nit. 6-19 capsule by ity o f Macrocryst 00:00: mouth 2 [place] (MACROBID) 00 (two) Medical 100 mg times Branch capsule daily. Nitrofurant 2018-0 Yes 100mg Take 1 Uni vers oin&Nit. 6-19 capsule by ity o f Macrocryst 00:00: mouth 2 [place] (MACROBID) 00 (two) Medical 100 mg times Branch capsule daily. Nitrofurant 2018-0 Yes 100mg Take 1 Uni vers oin&Nit. 6-19 capsule by ity o f Macrocryst 00:00: mouth 2 [place] (MACROBID) 00 (two) Medical 100 mg times Branch capsule daily. Nitrofurant 2018-0 2020- No 100mg Take 1 Un sosa oin&Nit. 6-19 06-25 capsule by ity of Macrocryst 00:00: 00:00 mouth 2 [place] (MACROBID) 00 :00 (two) Medical 100 mg times Branch capsule daily. oxyCODONE 2018-0 Yes 15mg Take 15 mg Un sosa (ROXICODONE 6-02 by mouth ity of ) 15 mg 14:57: every 4 [place] immediate 47 (four) Medical release hours as Branch tablet needed for Pain. pregabalin 2018-0 Yes 200mg Take 200 Un sosa (LYRICA) 6-02 mg by ity of 200 mg 14:57: mouth 3 [place] capsule 47 (three) Medical times Branch daily. ibuprofen 2018-0 Yes 800mg Take 800 Uni vers 800 mg 6-02 mg by ity of tablet 14:57: mouth [place] 47 every 6 Medical (six) Branch hours as needed. baclofen 10 2018-0 Yes 10mg Take 10 mg Univers mg tablet 6-02 by mouth 3 ity of 14:57: (three) [place] 47 times Medical daily. Branch oxyCODONE 2018-0 Yes 15mg Take 15 mg Un sosa (ROXICODONE 6-02 by mouth ity of ) 15 mg 14:57: every 4 [place] immediate 47 (four) Medical release hours as Branch tablet needed for Pain. pregabalin 2018-0 Yes 200mg Take 200 Un sosa (LYRICA) 6-02 mg by ity of 200 mg 14:57: mouth 3 [place] capsule 47 (three) Medical times Branch daily. ibuprofen 2018-0 Yes 800mg Take 800 Uni vers 800 mg 6-02 mg by ity of tablet 14:57: mouth [place] 47 every 6 Medical (six) Branch hours as needed. baclofen 10 2018-0 Yes 10mg Take 10 mg Univers mg tablet 6-02 by mouth 3 ity of 14:57: (three) [place] 47 times Medical daily. Branch oxyCODONE 2018-0 Yes 15mg Take 15 mg Un sosa (ROXICODONE 6-02 by mouth ity of ) 15 mg 14:57: every 4 [place] immediate 47 (four) Medical release hours as Branch tablet needed for Pain. pregabalin 2018-0 Yes 200mg Take 200 Un sosa (LYRICA) 6-02 mg by ity of 200 mg 14:57: mouth 3 [place] capsule 47 (three) Medical times Branch daily. ibuprofen 2018-0 Yes 800mg Take 800 Uni vers 800 mg 6-02 mg by ity of tablet 14:57: mouth [place] 47 every 6 Medical (six) Branch hours as needed. baclofen 10 2017-0 Yes 10mg Take 10 mg Univers mg tablet 6-02 by mouth 3 ity of 14:57: (three) [place] 47 times Medical daily. Branch oxyCODONE 2018-0 Yes 15mg Take 15 mg Un sosa (ROXICODONE 6-02 by mouth ity of ) 15 mg 14:57: every 4 [place] immediate 47 (four) Medical release hours as Branch tablet needed for Pain. pregabalin 2018-0 Yes 200mg Take 200 Un sosa (LYRICA) 6-02 mg by ity of 200 mg 14:57: mouth 3 [place] capsule 47 (three) Medical times Branch daily. ibuprofen 2018-0 Yes 800mg Take 800 Uni vers 800 mg 6-02 mg by ity of tablet 14:57: mouth [place] 47 every 6 Medical (six) Branch hours as needed. baclofen 10 2018-0 Yes 10mg Take 10 mg Univers mg tablet 6-02 by mouth 3 ity of 14:57: (three) [place] 47 times Medical daily. Branch clindamycin 2018-0 Yes 300mg Take 1 Uni vers 300 mg 6-02 capsule by ity of capsule 00:00: mouth 3 [place] 00 (three) Medical times Branch daily. levoFLOXaci 2018-0 Yes 500mg Take 1 Uni vers n 500 mg 6-02 tablet by ity of tablet 00:00: mouth [place] 00 every 24 Medical (twenty-fo Branch ur) hours. clindamycin 2018-0 Yes 300mg Take 1 Uni vers 300 mg 6-02 capsule by ity of capsule 00:00: mouth 3 [place] 00 (three) Medical times Branch daily. levoFLOXaci 2018-0 Yes 500mg Take 1 Uni vers n 500 mg 6-02 tablet by ity of tablet 00:00: mouth [place] 00 every 24 Medical (twenty-fo Branch ur) hours. clindamycin 2018-0 Yes 300mg Take 1 Uni vers 300 mg 6-02 capsule by ity of capsule 00:00: mouth 3 [place] 00 (three) Medical times Branch daily. levoFLOXaci 2018-0 Yes 500mg Take 1 Uni vers n 500 mg 6-02 tablet by ity of tablet 00:00: mouth [place] 00 every 24 Medical (twenty-fo Branch ur) hours. clindamycin 2018-0 Yes 300mg Take 1 Uni vers 300 mg 6-02 capsule by ity of capsule 00:00: mouth 3 [place] 00 (three) Medical times Branch daily. levoFLOXaci 2018-0 Yes 500mg Take 1 Uni vers n 500 mg 6-02 tablet by ity of tablet 00:00: mouth [place] 00 every 24 Medical (twenty-fo Branch ur) hours. clindamycin 2018-0 2020- No 300mg Take 1 Un sosa 300 mg 6-02 06-25 capsule by ity of capsule 00:00: 00:00 mouth 3 [place] 00 :00 (three) Medical times Branch daily. levoFLOXaci 2018-0 2020- No 500mg Take 1 Un sosa n 500 mg 6-02 06-25 tablet by ity o f tablet 00:00: 00:00 mouth [place] 00 :00 every 24 Medical (twenty-fo Branch ur) hours. mupirocin 2018-0 Yes Apply to Uni vers (BACTROBAN) 5-10 affected ity of 2 % cream 00:00: area(s) 3 [place] 00 (three) Medical times Branch daily. Also apply in nostrils and under fingernail s. mupirocin 2018-0 Yes Apply to Uni vers (BACTROBAN) 5-10 affected ity of 2 % cream 00:00: area(s) 3 [place] 00 (three) Medical times Branch daily. Also apply in nostrils and under fingernail s. mupirocin 2018-0 Yes Apply to Uni vers (BACTROBAN) 5-10 affected ity of 2 % cream 00:00: area(s) 3 [place] 00 (three) Medical times Branch daily. Also apply in nostrils and under fingernail s. mupirocin 2018-0 Yes Apply to Uni vers (BACTROBAN) 5-10 affected ity of 2 % cream 00:00: area(s) 3 [place] 00 (three) Medical times Branch daily. Also apply in nostrils and under fingernail s. mupirocin 2017-0 2020- No Apply to Un sosa (BACTROBAN) 5-10 06-25 affected ity of 2 % cream 00:00: 00:00 area(s) 3 [place] :00 (three) Medical times Branch daily. Also apply in nostrils and under fingernail s. traMADOL 2018-0 Yes 50mg Take 1 Univers (ULTRAM) 50 3-01 tablet by ity of mg tablet 00:00: mouth [place] 00 every 6 Medical (six) Branch hours as needed for Pain (scale 4-6). traMADOL 2018-0 Yes 50mg Take 1 Univers (ULTRAM) 50 3-01 tablet by ity of mg tablet 00:00: mouth [place] 00 every 6 Medical (six) Branch hours as needed for Pain (scale 4-6). traMADOL 2018-0 Yes 50mg Take 1 Univers (ULTRAM) 50 3-01 tablet by ity of mg tablet 00:00: mouth [place] 00 every 6 Medical (six) Branch hours as needed for Pain (scale 4-6). traMADOL 2018-0 Yes 50mg Take 1 Univers (ULTRAM) 50 3-01 tablet by ity of mg tablet 00:00: mouth [place] 00 every 6 Medical (six) Branch hours as needed for Pain (scale 4-6). traMADOL 2018-0 2020- No 50mg Take 1 Univer s (ULTRAM) 50 3-01 06-25 tablet by it y of mg tablet 00:00: 00:00 mouth [place] 00 :00 every 6 Medical (six) Branch hours as needed for Pain (scale 4-6). naproxen 2015-1 Yes 500mg Take 1 Tab Un sosa (NAPROSYN) 0-06 by mouth 2 ity of 500 mg 00:00: (two) [place] tablet 00 times Medical daily with Branch meals. naproxen 2014-03 Yes 500mg Take 1 Tab Un sosa (NAPROSYN) 0-06 by mouth 2 ity of 500 mg 00:00: (two) [place] tablet 00 times Medical daily with Branch meals. naproxen 2014-03 Yes 500mg Take 1 Tab Un sosa (NAPROSYN) 0-06 by mouth 2 ity of 500 mg 00:00: (two) [place] tablet 00 times Medical daily with Branch meals. naproxen 2014-03 Yes 500mg Take 1 Tab Un sosa (NAPROSYN) 0-06 by mouth 2 ity of 500 mg 00:00: (two) [place] tablet 00 times Medical daily with Branch meals. naproxen 2014-03 2020- No 500mg Take 1 Tab U nivers (NAPROSYN) 0-06 06-25 by mouth 2 it y of 500 mg 00:00: 00:00 (two) [place] tablet 00 :00 times Medical daily with Branch meals. Immunizations Ordered Filled Immunization Date Status Comments [facility] e Immunization Name Name Td 2018-07-08 Completed University of 00:00:00 [facility] Td 2018-07-08 Completed University of 00:00:00 [facility] Td 2018-07-08 Completed University of 00:00:00 [facility] Td 2018-07-08 Completed University of 00:00:00 [facility] Td 2018-07-08 Completed University of 00:00:00 [facility] Td 2018-07-08 Completed University of 00:00:00 [facility] Td 2018-07-08 Completed University of 00:00:00 [facility] Td 2018-07-08 Completed University of 00:00:00 [facility] Td 2018-07-08 Completed University of 00:00:00 [facility] Td 2016-12-08 Completed University of 00:00: [facility] Td 2016-12-08 Completed University of 00:00:00 [facility] Td 2016-12-08 Completed University of 00:00:00 [facility] Td 2016-12-08 Completed University of 00:00:00 [facility] Td 2016-12-08 Completed University of 00:00:00 [facility] Td 2016-12-08 Completed University of 00:00:00 [facility] Td 2016-12-08 Completed University of 00:00:00 [place] [facility] Td 2016-12-08 Completed University of 00:00:00 [place] [facility] Td 2016-12-08 Completed University of 00:00:00 [facility] Vital Signs Vital Name Observation Time Observation Value Comments Source Systolic blood 2021-05-09 00:26:52 142 mm[Hg] Univer sity of pressure [facility] Diastolic blood 2021-05-09 00:26:52 76 mm[Hg] Unive rsity of pressure [facility] Heart rate 2021-05-09 00:26:52 96 /min Universi ty of [facility] Body temperature 2021-05-09 00:26:52 36.89 Radha Univ ersity of [facility] Branch Respiratory rate 2021-05-09 00:26:52 16 /min Univ ersity of [facility] Body height 2021-05-08 20:44:00 172.7 cm Universi ty of [facility] Body weight 2021-05-08 20:44:00 78.019 kg Universi ty of [place] [facility] BMI 2021-05-08 20:44:00 26.15 kg/m2 Universi ty of [place] [facility] Oxygen saturation in 2021-05-08 20:44:00 100 /min University of Arterial blood by [place] [employer] [facility] Pulse oximetry Branch Height 2021-05-06 10:18:00 172.72 CM Weight 2021-05-06 10:18:00 78.47 KG Systolic blood 2019-09-19 15:54:00 132 mm[Hg] Univer sity of pressure [facility] Branch Diastolic blood 2019-09-19 15:54:00 75 mm[Hg] Unive rsity of pressure [facility] Heart rate 2019-09-19 15:54:00 73 /min Universi ty of [facility] Body temperature 2019-09-19 15:54:00 36.67 Radha Univ ersity of [facility] Branch Respiratory rate 2019-09-19 15:54:00 18 /min Univ ersity of [place] [facility] Oxygen saturation in 2019-09-19 15:54:00 96 /min University of Arterial blood by [place] [employer] [facility]andi Pulse oximetry Branch Body weight 2019-09-19 09:01:00 75.479 kg Universi ty of [place] [facility] BMI 2019-09-19 09:01:00 25.30 kg/m2 [facility] Body height 2019-09-17 02:41:00 172.7 cm Universi [facility] Systolic blood 2018-11-19 19:32:00 119 mm[Hg] Univer sity of [facility] Diastolic blood 2018-11-19 19:32:00 81 mm[Hg] Unive rsity of [facility] Heart rate 2018-11-19 19:32:00 94 /min [facility] Respiratory rate 2018-11-19 19:32:00 18 /min [facility] Body height 2018-11-19 19:32:00 172.7 cm [facility] Body weight 2018-11-19 19:32:00 66.225 kg [facility] BMI 2018-11-19 19:32:00 22.20 kg/m2 [facility] Procedures Procedure Date / Time Performing Clinician Source Performed ASSIGNMENT OF BENEFITS 2021-05-08 22:28:41 Doctor Unassigned, No [facility] XR FOREARM 2 VW RIGHT 2021-05-08 22:24:48 Rosario Velázquez [facility] XR HAND 3+ VW RIGHT 2021-05-08 22:24:48 Rosario Velázquez [facility] XR WRIST 3+ VW RIGHT 2021-05-08 22:24:48 Rosario Velázquez [facility] NOTICE OF PRIVACY 2021-05-08 20:30:26 Doctor Unassigned, No [facility] PRACTICES Name [facility] CONSENT/REFUSAL FOR 2021-05-08 20:26:45 [facility] VANCOMYCIN TROUGH 2019-09-18 14:16:00 Tobias Mckeon [facility] COMP. METABOLIC PANEL 2019-09-18 10:05:00 Heri Mccain [facility] ([id number]) [facility] CBC WITH DIFFERENTIAL 2019-09-18 10:05:00 Heri Mccain [facility] URINALYSIS 2019-09-17 19:41:00 [facility] 2019-09-17 08:49:00 Kalyn [facility] C-REACTIVE PROTEIN 2019-09-17 08:49:00 [facility] COMP. METABOLIC PANEL 2019-09-17 08:49:00 Kalyn [facility] ([id number]) Medical Branch SEDIMENTATION RATE 2019-09-17 08:49:00 [facility] CBC WITH DIFFERENTIAL 2019-09-17 08:49:00 Kalyn [facility] N-TERMINAL PRO-BNP 2019-09-17 08:49:00 [facility]yn [facility] PROCALCITONIN 2019-09-17 08:49:00 Kalyn [facility] COVID-19 (ID NOW RAPID 2019-09-17 00:38:00 Meenu Denny [facility] TESTING) [facility] Branch CT SOFT TISSUE NECK W 2019-09-17 00:00:43 Ham Cortes [facility] CONTRAST [facility] Branch PHOSPHORUS 2019-09-16 23:08:00 Kalyn [facility] CREATINE KINASE 2019-09-16 23:08:00 Kalyn [facility] MAGNESIUM 2019-09-16 23:08:00 Kalyn [facility] THYROID STIMULATING 2019-09-16 23:08:00 Kalyn [facility] HORMONE [facility] Branch HEPATIC FUNCTION PANEL 2019-09-16 23:08:00 Ham Cortes [facility] ([id number]) (ALB,T.PRO,BILI Medical Branch T,BU/BC,ALT,AST,ALK PHOS) BASIC METABOLIC PANEL 2019-09-16 23:08:00 Ham Cortes [facility] (NA, K, CL, CO2, Medical Branch GLUCOSE, BUN, CREATININE, CA) LIPID PANEL 2019-09-16 23:08:00 Kalyn [facility] ([id number])(TOTAL Medical Branch CHOLESTEROL, TRIGLYCERIDES, HDL) CBC WITH DIFFERENTIAL 2019-09-16 23:08:00 Ham Cortes [facility] GLYCOSYLATED HEMOGLOBIN 2019-09-16 23:08:00 Heri Mccain [facility] (A1C) [facility] PROTHROMBIN TIME / INR 2019-09-16 23:08:[address] [facility] 2019-09-16 23:08:00 Ham Cortes [facility] THRFormerly [facility] NOTICE OF PRIVACY 2019-09-16 20:56:18 Doctor Unassigned, No [facility] PRACTICES Name [facility] CONSENT/REFUSAL FOR 2019-09-16 20:56:00 Doctor Unassigned, No [facility] Name [facility] REFERRAL- 2018-11-14 05:01:00 Doctor Unassigned, No [facility] REQUEST/RESPONSE Name [facility] Encounters Start End Encounter Admission Attending Care Care Encounter Source Date/Time Date/Time Type Type Clinicians Facility Department ID 2021-05-13 2021-05-13 Letter Orthopedic [facility] [id number] Univers 00:00:00 00:00:00 (Out) Clinic SPECIALTY 350.1.13.10 ity of [facility] 4.2.7.2.686 [facility] AT [phone] Tn cortes RAWLS 198 [facility] 2021-05-11 2021-05-12 Emergency E SHAHEEN, MHFB [facility]FB 7500 [facility]FB 12:20:00 13:02:00 EDGAR 2021-05-08 2021-05-08 Emergency X [facility] ERT [id number] Univers 14:47:00 18:38:00 ROSARIO barclayy of [facility] 2021-05-08 2021-05-08 Emergency [facility] [id number] Univers 14:47:00 18:38:00 Rosario GARCÍA 350.1.13.10 ity of [place] 4.2.7.2.686 [facility] [phone] [facility] [address] [place] 2021-05-08 2021-05-08 Orders Doctor SAMUEL 1.2.840.114 [id number] Univers 00:00:00 00:00:00 Only Unassigned, DUKE 350.1.13.10 ity of [place] [facility] 4.2.7.2.686 [place] as [phone] [facility] 009 Branch 2021-05-06 2021-05-06 Emergency E ORA, [facility] [id number] [facility] 10:08:00 11:03:00 MATTHEW Morin [facility] 2019-09-20 2019-09-20 Transition Hitesh Draper 1.2.840.114 [id number] Univers 00:00:00 00:00:00 of Care Tu Hagen Kishore 350.1.13.10 ity of [place]2.[place] [phone] [facility] 403 Branch 2019-09-16 2019-09-19 Inpatient X KALYN [facility] [id number] Univers 17:20:32 13:24:00 HERI ity [facility] 2019-09-16 2019-09-19 Hospital Sebastian Ham [facility] 1.2.840.1 [id number] Univers 17:20:32 13:24:00 Encounter Meenu Denny Follett 350.1.13.1 0 ity of Heri Mccain 4.2.7.2.686 [facility] [phone] [facility] 081 Branch 2019-06-12 2019-06-12 [id number] Univers 14:30:00 14:30:00 AJ [id number] ity [facility] 2019-06-12 2019-06-12 [facility] [id number] Univers 14:30:00 14:30:00 AJ [facility] 2018-11-19 2018-11-19 [facility] 1.2.840.114 [id number] Univers 14:31:25 14:46:25 Visit Aj [facility] 350.1.13.10 it y of Surgical 4.2.7.2.686 [place] as Specialti [id number] [facility] 198 [facility]3] 2018-11-14 2018-11-14 Orders Doctor SAMUEL 1.2.840.114 [id number] Univers 00:00:00 00:00:00 Only Unassigned, DUKE 350.1.13.10 ity of [place] [facility] 4.2.7.2.686 [place] as [phone] [place] [address] Branch 2017-09-28 2017-09-28 Emergency E BENJAMIN [facility] 1000 [id number] [place] 17:10:00 17:40:00 [facility] 2017-09-06 2017-09-06 Emergency E NATASHA [facility] [id number] [place] 13:31:00 17:01:00 [facility] Results Test Description Test Time Test Comments Results Result Comments Source XR FOREARM RIGHT AP 2021-05-06 & LAT 11:09:09 [facility] 1965 Sex: F EXAMINATION :XR FOREARM RIGHT AP & LATCLINICAL INDICATION:Female, 55 years old with Unspecified fallCOMPARISON: NoneFINDINGS:Two view(s) of the right forearm obtained.Joint spaces: Anatomic.Bones: No acute fracture.Soft tissues: Unremarkable.IMPRE SSION: No acute findings.Denita tristan signed by: Micky Everett MD 05/06/2021 11:09 AM [employer] Vancomycin Trough Level - Draw no more than 60 minutes before 2019-09-18 16:09:00 the 1015 dose. Test Item Value Reference Range Interpretation Comme nts VANCO TROUGH (test code = 8109427873) 14.0 ug/mL 10-20 IZABELLA (test code = IZABELLA) Toxic Range: ?>20 ug/mL 15-20 ug/mL is recommended for severe infection or when Vancomycin PATRIZIA is greater than or equal to 2. Lab Interpretation (test code = Normal 63036-6) [facility] WITH [id number] 15:39:00 Test Item Value Reference Range Interpretation Comments WBC (test code = See_Comment [Automated 6690-2) message] The sy stem which generated this result transmitted reference range : 4.30 - 11.10 10*3/?L. The reference range was not used to interpret this result as normal/abnormal . RBC (test code = See_Comment L [Automated 789-8) message] The sy stem which generated this result transmitted reference range : 3.93 - 5.25 10*6/?L. The reference range was not used to interpret this result as normal/abnormal . HGB (test code = 11.8 g/dL 11.6-15 718-7) HCT (test code = 35.2 % 35.7-45.2 L 4544-3) MCV (test code = 100.9 fL 80.6-95.5 H 787-2) MCH (test code = 33.8 pg 25.9-32.8 H 785-6) MCHC (test code = 33.5 g/dL 31.6-35.1 786-4) RDW-SD (test code = 43.4 fL 39-49.9 79835-8) RDW-CV (test code = 11.7 % 12-15.5 L 788-0) PLT (test code = See_Comment [Automated 777-3) message] The sy stem which generated this result transmitted reference range : 166 - 358 10*3/ ?L. The reference r corazon was not used to interpret this result as normal/abnormal . MPV (test code = 11.2 fL 9.5-12.9 11617-6) NRBC/100 WBC (test See_Comment [Automat ed code = 8393438217) message] The system which generated this result transmitted reference range : 0.0 - 10.0 /100 WBCs. The refer ence range was not u sed to interpret th is result as normal/abnormal . NRBC x10^3 (test code <0.01 See_Comment [Auto mated = 1307299587) message] The s ystem which generated this result transmitted reference range : 10*3/?L. The reference range was not used to interpret this result as normal/abnormal . GRAN MAT (NEUT) % 27.0 % (test code = 770-8) IMM GRAN % (test code 0.40 % = 8151515615) LYMPH % (test code = 59.2 % 736-9) MONO % (test code = 5.5 % 5905-5) EOS % (test code = 7.3 % 713-8) BASO % (test code = 0.6 % 706-2) GRAN MAT x10^3(ANC) 1.37 10*3/uL 1.88-7.09 L (test code = 9626527660) IMM GRAN x10^3 (test <0.03 0-0.06 code = 4596668208) LYMPH x10^3 (test code 3.00 10*3/uL 1.32-3.29 = 731-0) MONO x10^3 (test code 0.28 10*3/uL 0.33-0.92 L = 742-7) EOS x10^3 (test code = 0.37 10*3/uL 0.03-0.39 711-2) BASO x10^3 (test code 0.03 10*3/uL 0.01-0.07 = 704-7) Lab Interpretation Abnormal (test code = 86126-2) [facility]. METABOLIC PANEL (01136)2019-09-18 11:35:00 Test Item Value Reference Range Interpretation Comments NA (test code = 137 mmol/L 135-145 3651588138) K (test code = 4.1 mmol/L 3.5-5 2530604602) CL (test code = 108 mmol/L 98-108 2782928282) CO2 TOTAL (test code = 25 mmol/L 23-31 7557850797) AGAP (test code = 2-16 0039427603) BUN (test code = 6 mg/dL 7-23 L 5599391212) GLUCOSE (test code = 89 mg/dL 70-110 9944805574) CREATININE (test code = 0.70 mg/dL 0.5-1.04 1234910641) TOTAL BILI (test code = <0.1 0.1-1.1 L 2733676033) CALCIUM (test code = 8.6 mg/dL 8.6-10.6 7136142271) T PROTEIN (test code = 5.7 g/dL 6.3-8.2 L 6849078911) ALBUMIN (test code = 2.9 g/dL 3.5-5 L 0766403143) ALK PHOS (test code = 58 U/L 34-122 1005177715) ALTv (test code = 12 U/L 5-35 1742-6) AST(SGOT) (test code = 18 U/L 13-40 8300355228) eGFR Calculation mL/min/1.73m2 (Non-) (test code = 0430230233) eGFR Calculation mL/min/1.73m2 () (test code = 7939932273) IZABELLA (test code = IZABELLA) Association of Glomerular Filtration Rate (GFR) and Staging of Kidney Disease* + --+ --+ ------+| GFR (mL/min/1.73 m2) ?| With Kidney Damage ?| ?Without Kidney Damage+ --------+ --------+ +| ?>90 ?| ?Stage one ?| ? Normal ?+ ---+ ---+ -------+| ?60-89 ?| ?Stage two ?| ? Decreased GFR ? + --+ --+ ------+| ?30-59 ?| ?Stage three ?| ? Stage three ? + --+ --+ ------+| ?15-29 ?| ?Stage four ? | ? Stage four ?+ ---+ ---+ -------+| ?<15 (or dialysis) ? ?| ?Stage five ? | ? Stage five ?+ ---+ ---+ -------+ *Each stage assumes the associated GFR level has been in effect for at least three months. ?Stages 1 to 5, with or without kidney disease, indicate chronic kidney disease. Notes: Determination of stages one and two (with eGFR >59mL/min/1.73 m2) requires estimation of kidney damage for at least three months as defined by structural or functional abnormalities of the kidney, manifested by either:Pathological abnormalities or Markers of kidney damage (including abnormalities in the composition of the blood or urine or abnormalities in imaging tests). Lab Interpretation Abnormal (test code = 22443-8) [facility] [id number] 20:16:00 Test Item Value Reference Range Interpretation Comments APPEARANCE (test code = Hazy Clear A 3631586087) COLOR (test code = Yellow Yellow 7850182267) PH (test code = 4.8-8.0 2924316617) SP GRAVITY (test code = 1.003-1.030 8445821817) GLU U QUAL (test code = Normal Normal 7447867792) BLOOD (test code = 1+ Negative A 9770233746) KETONES (test code = Negative Negative 7838809332) PROTEIN (test code = Negative Negative 2887-8) UROBILIN (test code = Normal Normal 7389137115) BILIRUBIN (test code = Negative Negative 2984056982) NITRITE (test code = Negative Negative 4919646948) LEUK LUIS (test code = Negative Negative 9013981738) RBC/HPF (test code = See_Comment [Autom ated message] 4119729143) The system [employer] generated this result transmitted ref erence range: 0 - 3 HP F. The reference range was not used to int erpret this result as normal/abnormal . WBC/HPF (test code = See_Comment [Autom ated message] 6500016475) The system [employer] generated this result transmitted ref erence range: 0 - 5 HP F. The reference range was not used to int erpret this result as normal/abnormal . BACTERIA (test code = Few Negative A 9973980385) SQ EPITH (test code = HPF 3463303882) Lab Interpretation (test Abnormal code = 41100-6) [facility] [id number] 17:26:00 Test Item Value Reference Range Interpretation Comments CRP (test code = 3296670041) 0.1 mg/dL <0.8 Lab Interpretation (test code = Normal 53854-8) [facility]2020-[facility]-23 16:22:00 Test Item Value Reference Interpretation Comments Range Procalcitonin (test <0.02 See_Comment [Automa josey code = 1811659066) message] The system which generated this result transmitted reference range: <0.07 ng/mL. The reference range was not used to interpret this result as normal/abnormal . IZABELLA (test code = INTERPRETATION OF IZABELLA) PROCALCITONIN RESULTS IN ADULTS >= 18 YEARS OF AGE Initiation and discontinuation of antibiotics on patients with suspected or confirmed Lower Respiratory Tract Infection in Adults >= 18 years of age. + +------ + ----+ +|Procalcit onin |Interpretation ?|Antibiotic ? ? |Considerations ? |ng/mL ? | ?|recommendation | ? + +------ + ----+ +| <0.1 ? | Bacterial ? ? ?| Strongly ? ? ?| ? | ?| infection very | discouraged ? | Overruling: ? | ?| unlikely ? ? ? | ? | ? Clinically unstable ? ? ? + +------ + ----+ ? High risk for adverse ? ? | <0.25 ?| Bacterial ? ? ?| Discouraged ? | ? outcome ? | ?| infection ? ? ?| ? | ? SEE IMPORTANT NOTE ?| ?| unlikely ? ? ? | ? | ? + +------ + ----+ +| >=0.25 ? ? ? | Bacterial ? ? ?| Encouraged ? ?| ? | ?| infection ? ? ?| ? | ? | ?| likely ? | ? | Consider treatment failure ?+ +----- + -----+ if levels does not decrease | >0.5 ? | Bacterial ? ? ?| Strongly ? ? ?| appropriately ? | ?| infection very | encouraged ? ?| ? | ?| likely ? | ? | ? + +------ + ----+ + Discontinuation of antibiotics in high-acuity patients with suspected or confirmed sepsis in Adults >= 18 years of age. + +------ + ----+ +|Procalcit onin |Interpretation ?|Antibiotic ? ? |Considerations ? |ng/mL ? | ?|recommendation | ? + +------ + ----+ +| <0.25 ?| Bacterial ? ? ?| Strongly ? ? ?| ? | ?| infection very | discouraged ? | Overruling: ? | ?| unlikely ? ? ? | ? | ? Clinically unstable ? ? ? + +------ + ----+ ? High risk for adverse ? ? | <0.5 or drop | Bacterial ? ? ?| Discouraged ? | ? outcome ? | >80% from ? ?| infection ? ? ?| ? | ? SEE IMPORTANT NOTE ?| highest PCT ?| unlikely ? ? ? | ? | ? | level ?| ?| ? | ? + +------ + ----+ +| >=0.5 ?| Bacterial ? ? ?| Encouraged ? ?| ? | ?| infection ? ? ?| ? | ? | ?| likely ? | ? | Consider treatment failure ?+ +----- + -----+ if levels does not decrease | >1.0 ? | Bacterial ? ? ?| Strongly ? ? ?| appropriately ? | ?| infection very | encouraged ? ?| ? | ?| likely ? | ? | ? + +------ + ----+ + Percentage of drop of Procalcitonin calculation for Discontinuation of antibiotics in high-acuity patients with suspected or confirmed sepsis in Adults >= 18 years of age. ? Procalcitonin highest{}-Procalcitoni n current{}Delta Procalcitonin = ___ x100% ? Procalcitonin current {} IMPORTANT NOTE: Procalcitonin may be elevated without bacterial infection by physiologic stress related to trauma, orosco, chronic dialysis, metastatic cancer, surgery in the past seven days, malaria, some fungal infections, and some forms of vasculitis. The interpretation algorithm may not apply to patients with immunosuppression (equivalent of >10 mg of prednisone daily), HIV with CD4 cell count < 350 cells/mm3, active malignancy on systemic chemotherapy, solid organ transplant or hematopoietic stem cell transplantation, or hospital acquired pneumonia. Additionally, some clinical trials of procalcitonin have excluded patients with shock requiring vasopressor use, acute respiratory failure requiring mechanical ventilation, or those with known lung abscess/empyema. For further information please refer to:[email or web address] Lab Interpretation Normal (test code = 44249-3) [facility] WITH [id number] 10:26:00 Test Item Value Reference Range Interpretation Comments WBC (test code = See_Comment [Automated 6690-2) message] The sy stem which generated this result transmitted reference range : 4.30 - 11.10 10*3/?L. The reference range was not used to interpret this result as normal/abnormal . RBC (test code = See_Comment L [Automated 789-8) message] The sy stem which generated this result transmitted reference range : 3.93 - 5.25 10*6/?L. The reference range was not used to interpret this result as normal/abnormal . HGB (test code = 11.9 g/dL 11.6-15 718-7) HCT (test code = 34.7 % 35.7-45.2 L 4544-3) MCV (test code = 99.4 fL 80.6-95.5 H 787-2) MCH (test code = 34.1 pg 25.9-32.8 H 785-6) MCHC (test code = 34.3 g/dL 31.6-35.1 786-4) RDW-SD (test code = 42.9 fL 39-49.9 18922-3) RDW-CV (test code = 11.8 % 12-15.5 L 788-0) PLT (test code = See_Comment [Automated 777-3) message] The sy stem which generated this result transmitted reference range : 166 - 358 10*3/ ?L. The reference r corazon was not used to interpret this result as normal/abnormal . MPV (test code = 11.3 fL 9.5-12.9 83926-4) NRBC/100 WBC (test See_Comment [Automat ed code = 8759608039) message] The system which generated this result transmitted reference range : 0.0 - 10.0 /100 WBCs. The refer ence range was not u sed to interpret th is result as normal/abnormal . NRBC x10^3 (test code <0.01 See_Comment [Auto mated = 8647016348) message] The s ystem which generated this result transmitted reference range : 10*3/?L. The reference range was not used to interpret this result as normal/abnormal . GRAN MAT (NEUT) % 36.9 % (test code = 770-8) IMM GRAN % (test code 0.20 % = 1828697482) LYMPH % (test code = 50.8 % 736-9) MONO % (test code = 5.6 % 5905-5) EOS % (test code = 5.8 % 713-8) BASO % (test code = 0.7 % 706-2) GRAN MAT x10^3(ANC) 1.64 10*3/uL 1.88-7.09 L (test code = 2905626892) IMM GRAN x10^3 (test <0.03 0-0.06 code = 4041391903) LYMPH x10^3 (test code 2.26 10*3/uL 1.32-3.29 = 731-0) MONO x10^3 (test code 0.25 10*3/uL 0.33-0.92 L = 742-7) EOS x10^3 (test code = 0.26 10*3/uL 0.03-0.39 711-2) BASO x10^3 (test code 0.03 10*3/uL 0.01-0.07 = 704-7) Lab Interpretation Abnormal (test code = 96287-8) [facility] [id number] 10:24:00 Test Item Value Reference Range Interpretation Comments NT-proBNP (test code 201 pg/mL See_Comment H [Autom ated = 3310759259) message] The system which generated this result transmitted reference range : <=125. The reference range was not used to interpret this result as normal/abnormal . IZABELLA (test code = IZABELLA) Biotin has been reported to cause a negative bias, interpret results relative to patient's use of biotin. Lab Interpretation Abnormal (test code = 01642-6) [facility] Hospital[facility]EDIMENTATION [id number] 10:23:00 Test Item Value Reference Range Interpretation Comments ESR (test code = See_Comment [Automated message] 9137301501) The system [employer] generated this result transmitted ref erence range: 0 - 20 m m/HR. The reference r corazon was not used to interpret this result as normal/abnor mal. Lab Interpretation (test Normal code = 66514-4) [facility]. METABOLIC PANEL (63462)2019-09-17 10:19:00 Test Item Value Reference Range Interpretation Comments NA (test code = 137 mmol/L 135-145 7844493129) K (test code = 3.9 mmol/L 3.5-5 3029867269) CL (test code = 107 mmol/L 98-108 4270884901) CO2 TOTAL (test code = 27 mmol/L 23-31 6502747327) AGAP (test code = 2-16 7498238847) BUN (test code = 6 mg/dL 7-23 L 8120775309) GLUCOSE (test code = 95 mg/dL 70-110 2812375881) CREATININE (test code = 0.76 mg/dL 0.5-1.04 5430308765) TOTAL BILI (test code = 0.3 mg/dL 0.1-1.1 2013715029) CALCIUM (test code = 8.4 mg/dL 8.6-10.6 L 6316668187) T PROTEIN (test code = 5.9 g/dL 6.3-8.2 L 6816678782) ALBUMIN (test code = 3.0 g/dL 3.5-5 L 9410343066) ALK PHOS (test code = 54 U/L 34-122 1220941119) ALTv (test code = 15 U/L 5-35 1742-6) AST(SGOT) (test code = 30 U/L 13-40 0038104496) eGFR Calculation mL/min/1.73m2 (Non-) (test code = 5116720021) eGFR Calculation mL/min/1.73m2 () (test code = 2889616382) IZABELLA (test code = IZABELLA) Association of Glomerular Filtration Rate (GFR) and Staging of Kidney Disease* + --+ --+ ------+| GFR (mL/min/1.73 m2) ?| With Kidney Damage ?| ?Without Kidney Damage+ --------+ --------+ +| ?>90 ?| ?Stage one ?| ? Normal ?+ ---+ ---+ -------+| ?60-89 ?| ?Stage two ?| ? Decreased GFR ? + --+ --+ ------+| ?30-59 ?| ?Stage three ?| ? Stage three ? + --+ --+ ------+| ?15-29 ?| ?Stage four ? | ? Stage four ?+ ---+ ---+ -------+| ?<15 (or dialysis) ? ?| ?Stage five ? | ? Stage five ?+ ---+ ---+ -------+ *Each stage assumes the associated GFR level has been in effect for at least three months. ?Stages 1 to 5, with or without kidney disease, indicate chronic kidney disease. Notes: Determination of stages one and two (with eGFR >59mL/min/1.73 m2) requires estimation of kidney damage for at least three months as defined by structural or functional abnormalities of the kidney, manifested by either:Pathological abnormalities or Markers of kidney damage (including abnormalities in the composition of the blood or urine or abnormalities in imaging tests). Lab Interpretation Abnormal (test code = 68980-8) [facility] 10:19:00 Test Item Value Reference Range Interpretation Comments MAGNESIUM (test code = 2658281916) 1.8 mg/dL 1.7-2.4 Lab Interpretation (test code = Normal 51638-0) [facility] HospitalTHYROID STIMULATING [id number] 08:06:00 Test Item Value Reference Range Interpretation Comments TSH (test code = See_Comment [Automated message] 1104563075) The system [employer] generated this result transmitted ref erence range: 0.45 - 4 .70 mIU/L. The refe rence range was not u sed to interpret this result as normal/abnor mal. Lab Interpretation (test Normal code = 32825-7) [facility] HospitalGLYCOSYLATED HEMOGLOBIN (A1C)2019-09-17 07:40:00 Test Item Value Reference Interpretation Comments Range HGB A1C (test code = See_Comment [Autom ated 4548-4) message] The system which generated this result transmitted reference range : 4.0 - 6.0 % NGSP. The reference range was not used to interpret this result as normal/abnormal . IZABELLA (test code = %A1C (NGSP) IZABELLA) Interpretation (ADA)4.8-5.6 ? ? Normal or (Non-Diabetic Range)5.7-6.4 ? ? Increased Risk (Pre-Diabetic)>6.5 ?Diabetes Indicated Lab Interpretation Normal (test code = 21894-0) [facility]2020-06-23 07:32:00 Test Item Value Reference Range Interpretation Comments MAGNESIUM (test code = 8438788718) 1.9 mg/dL 1.7-2.4 Lab Interpretation (test code = Normal 63432-6) [facility] Hospital[facility]OSPHORUS2020-06-23 07:32:00 Test Item Value Reference Range Interpretation Comments PHOSPHORUS (test code = 9199479906) 3.8 mg/dL 2.5-5 Lab Interpretation (test code = Normal 86817-3) [facility] HospitalLIPID PANEL (89658)(TOTAL CHOLESTEROL, TRIGLYCERIDES, HDL)2019-09-17 07:32:00 Test Item Value Reference Range Interpretation Comments CHOL (test code = 181 mg/dL 120-200 2414180803) HDL (test code = 45 mg/dL >50 L 5405151572) HDLC RATIO (test code = See_Comment [Au tomated message] 9227136716) The system [employer] generated this result transmit josey reference range : <=4.5. The refe rence range was not u sed to interpret th is result as normal/abnormal . TRIG (test code = 162 mg/dL 30-170 2384507828) LDL CHOL (test code = 104 mg/dL See_Comment [Auto mated message] 78288-3) The system [employer] generated this result transmit josey reference range : <=160. The refe rence range was not u sed to interpret th is result as normal/abnormal . VLDL (test code = 32 mg/dL 5-60 9612620525) Lab Interpretation (test Abnormal code = 03282-6) [facility] HospitalCREATINE [id number] 07:31:00 Test Item Value Reference Range Interpretation Comments CK (test code = 6151984007) 68 U/L 33-194 Lab Interpretation (test code = Normal 30419-8) [facility] (ID NOW RAPID TESTING)2019-09-17 01:40:00 Test Item Value Reference Range Interpretation Comments SARS-CoV-2 Rapid ID NOW Not Detected Not Detected (test code = 67714-9) IZABELLA (test code = IZABELLA) ID NOW COVID-19 Assay is an isothermal nucleic acid amplification test intended for the qualitative detection of nucleic acid from SARS-CoV-2 viral RNA in nasopharyngeal (PLODDING MACHINE OPERATOR) specimens. It is used under Emergency Use Authorization (EUA) by FDA. The limit of detection (LOD) of the assay is 125 Genome Equivalents/mL. A positive result is indicative of the presence of SARS-CoV-2 RNA. ?Clinical correlation with patient history and other diagnostic information is necessary to determine patient infection status. A negative (Not Detected) result does not preclude SARS-CoV-2 infection. In patients with clinical symptoms and other tests that are consistent with SARS-CoV-2 infection, negative results should be treated as presumptive negative and a new specimen should be tested with alternative PCR molecular test. Invalid: Please collect a new specimen for repeat patient testing if clinically indicated. Lab Interpretation Normal (test code = 94268-3) [facility] [id number] 01:32:58 Chin soft tissue swelling and fat stranding suggestive of cellulitis. Nodrainable soft tissue fluidcollection identified. Mildly enlarged left level 1B cervical lymph node, likely reactive. Pneumatized secretions with air-fluid levels in the right maxillary sinusmay be seen with acute sinusitis in the appropriate clinical setting. Preliminary Report Dictated by Resident: Severiano Aguilar MD., have reviewed this study and agree with theabove report.CT SOFT TISSUE NECK W CONTRAST HISTORY: Neck abscess, deep tissue , cellulitis chin. COMPARISON: None. Technique: CT of the neck was performed after administration of 100 cc IVOmnipaque contrast. Coronal and sagittal reformats were obtained andreviewed. FINDINGS: Mild skin thickening and subcutaneous stranding is seen overlying themandible. No drainable fluid collection is identified. Mildly enlarged 1.6cm left level 1b cervical lymph node, likely reactive. The nasopharynx, oropharynx, hypopharynx, and larynx are patent withoutasymmetric soft tissue density. Mild hyperenhancement of the palatine andlingual tonsils. The cervical esophagus is unremarkable. The trachea isunremarkable. Pneumatized secretions with air-fluid levels are noted in the rightmaxillary sinus. The mandible and temporomandibular joints are unremarkable. There aremultiple retained roots noted throughout the maxillary dentition. The parotid and submandibular salivary glands are unremarkable. No stone isseen along the course of the Parvin or Berks duct. 4 mm right and 3 mmleft thyroid lobe nodules. [facility], Radiant Results Inft User - 09/16/2019 8:45 PM CDTCT SOFT TISSUE NECK W CONTRASTHISTORY: Neck abscess, deep tissue , cellulitis chin. COMPARISON: None.Technique: CT of the neck was performed after administration of 100 cc IVOmnipaque contrast. Coronal and sagittal reformats were obtained andreviewed.FINDINGS:Mild skin thickening and subcutaneous str anding is seen overlying themandible. No drainable fluid collection is identified. Mildly enlarged 1.6cm left level 1b cervical lymph node, likely reactive. The nasopharynx, oropharynx, hypopharynx, and larynx are patent withoutasymmetric soft tissue density. Mild hyperenhancement of the palatine andlingual tonsils. The cervical esophagus is unremarkable. The trachea isunremarkable. Pneumatized secretions with air-fluid levels are noted in the rightmaxillary sinus.The mandible and temporomandibular joints are unremarkable. There aremultiple retained roots noted throughout the maxillary dentition.The parotid and submandibular salivary glands are unremarkable. No stone isseen along the course of theStenson or Tatyana duct. 4 mm right and 3 mmleft thyroid lobe nodules. IMPRESSIONChin soft tissue swelling and fat stranding suggestive of cellulitis. Nodrainable soft tissue fluid collection identified.Mildly enlarged left level 1B cervical lymph node, likely reactive.Pneumatized secretions with air-fluid levels in the right maxillary sinusmay be seen with acute sinusitis in the appropriate clinicalsetting.Preliminary Report Dictated by Resident: Severiano Leiva MD., have reviewed this study and agree with theabove report.[facility] (NA, K, CL, CO2, GLUCOSE, BUN, CREATININE, CA)2019-09-16 23:27:00 Test Item Value Reference Range Interpretation Comments NA (test code = 137 mmol/L 135-145 7764078302) K (test code = 3.5 mmol/L 3.5-5 9633440395) CL (test code = 107 mmol/L 98-108 2038568383) CO2 TOTAL (test code = 25 mmol/L 23-31 6775175419) AGAP (test code = 2-16 5679487675) BUN (test code = 3 mg/dL 7-23 L 5426569500) GLUCOSE (test code = 112 mg/dL 70-110 H 4345307559) CREATININE (test code = 0.52 mg/dL 0.5-1.04 4600891423) CALCIUM (test code = 9.2 mg/dL 8.6-10.6 8216383685) eGFR Calculation mL/min/1.73m2 (Non-) (test code = 8502868972) eGFR Calculation mL/min/1.73m2 () (test code = 1227184921) IZABELLA (test code = IZABELLA) Association of Glomerular Filtration Rate (GFR) and Staging of Kidney Disease* + --+ --+ ------+| GFR (mL/min/1.73 m2) ?| With Kidney Damage ?| ?Without Kidney Damage+ --------+ --------+ +| ?>90 ?| ?Stage one ?| ? Normal ?+ ---+ ---+ -------+| ?60-89 ?| ?Stage two ?| ? Decreased GFR ? + --+ --+ ------+| ?30-59 ?| ?Stage three ?| ? Stage three ? + --+ --+ ------+| ?15-29 ?| ?Stage four ? | ? Stage four ?+ ---+ ---+ -------+| ?<15 (or dialysis) ? ?| ?Stage five ? | ? Stage five ?+ ---+ ---+ -------+ *Each stage assumes the associated GFR level has been in effect for at least three months. ?Stages 1 to 5, with or without kidney disease, indicate chronic kidney disease. Notes: Determination of stages one and two (with eGFR >59mL/min/1.73 m2) requires estimation of kidney damage for at least three months as defined by structural or functional abnormalities of the kidney, manifested by either:Pathological abnormalities or Markers of kidney damage (including abnormalities in the composition of the blood or urine or abnormalities in imaging tests). Lab Interpretation Abnormal (test code = 81650-9) [facility] (ALB, T.PRO, BILI T, BU/BC, ALT, AST, ALK PHOS)2019-09-16 23:27:00 Test Item Value Reference Range Interpretation Comments TOTAL BILI (test code = 7174161762) 0.2 mg/dL 0.1-1.1 BILI UNCON (test code = 9141757452) 0.3 mg/dL 0.1-1.1 BILI CONJ (test code = 6871199148) 0.0 mg/dL 0-0.3 T PROTEIN (test code = 0078973886) 7.2 g/dL 6.3-8.2 ALBUMIN (test code = 0911625924) 4.0 g/dL 3.5-5 ALK PHOS (test code = 4865262058) 82 U/L 34-122 ALTv (test code = 1742-6) 19 U/L 5-35 AST(SGOT) (test code = 9907422457) 30 U/L 13-40 Lab Interpretation (test code = Normal 16963-4) [facility] 23:27:00 Test Item Value Reference Range Interpretation Comments APTT Patient (test See_Comment [Automat ed code = 3173-2) message] The system which generated this result transmitted reference range : 23 - 38 Seconds . The reference range was not used to interpr et this result as normal/abnormal . IZABELLA (test code = IZABELLA) The [facility] [place] patient population mean normal value for aPTT is 30 seconds. Lab Interpretation Normal (test code = 24300-9) [facility] HospitalProthrombin Time (PT) / [id number] 23:25:00 Test Item Value Reference Range Interpretation Comments PROTIME PATIENT (test See_Comment [Auto mated message] code = 5964-2) The system wh ich generated this result transmitted ref erence range: 12.0 - 1 4.7 Seconds. The re ference range was not u sed to interpret this result as normal/abnor mal. INR (test code = 6301-6) Nor mal INR <1.1; Warfarin Therap eutic range 2.0 to 3. 0 or 2.5 to 3.5, dep ending upon the indica tions. Lab Interpretation (test Normal code = 68416-6) [facility] WITH [id number] 23:18:00 Test Item Value Reference Range Interpretation Comments WBC (test code = See_Comment [Automated 2890-2) message] The sy stem which generated this result transmitted reference range : 4.30 - 11.10 10*3/?L. The reference range was not used to interpret this result as normal/abnormal . RBC (test code = See_Comment [Automated 789-8) message] The sy stem which generated this result transmitted reference range : 3.93 - 5.25 10*6/?L. The reference range was not used to interpret this result as normal/abnormal . HGB (test code = 13.8 g/dL 11.6-15 718-7) HCT (test code = 39.8 % 35.7-45.2 4544-3) MCV (test code = 99.0 fL 80.6-95.5 H 787-2) MCH (test code = 34.3 pg 25.9-32.8 H 785-6) MCHC (test code = 34.7 g/dL 31.6-35.1 786-4) RDW-SD (test code = 43.0 fL 39-49.9 28394-2) RDW-CV (test code = 11.8 % 12-15.5 L 788-0) PLT (test code = See_Comment [Automated 777-3) message] The sy stem which generated this result transmitted reference range : 166 - 358 10*3/ ?L. The reference r corazon was not used to interpret this result as normal/abnormal . MPV (test code = 10.4 fL 9.5-12.9 17314-2) NRBC/100 WBC (test See_Comment [Automat ed code = 6585297420) message] The system which generated this result transmitted reference range : 0.0 - 10.0 /100 WBCs. The refer ence range was not u sed to interpret th is result as normal/abnormal . NRBC x10^3 (test code <0.01 See_Comment [Auto mated = 3238677779) message] The s ystem which generated this result transmitted reference range : 10*3/?L. The reference range was not used to interpret this result as normal/abnormal . GRAN MAT (NEUT) % 44.5 % (test code = 770-8) IMM GRAN % (test code 0.40 % = 9520510843) LYMPH % (test code = 44.5 % 736-9) MONO % (test code = 5.2 % 5905-5) EOS % (test code = 4.8 % 713-8) BASO % (test code = 0.6 % 706-2) GRAN MAT x10^3(ANC) 2.23 10*3/uL 1.88-7.09 (test code = 0667927648) IMM GRAN x10^3 (test <0.03 0-0.06 code = 3634854931) LYMPH x10^3 (test code 2.23 10*3/uL 1.32-3.29 = 731-0) MONO x10^3 (test code 0.26 10*3/uL 0.33-0.92 L = 742-7) EOS x10^3 (test code = 0.24 10*3/uL 0.03-0.39 711-2) BASO x10^3 (test code 0.03 10*3/uL 0.01-0.07 = 704-7) Lab Interpretation Abnormal (test code = 15900-4) [facility] HospitalACETAMINOPHEN2018-06-13 16:06:00 Test Item Value Reference Range Interpretation Comments ACETAMINPH (test code = 94M) <2.0 ug/mL 10.0-30.0 L COMPREHENSIVE METABOLIC [id number] 16:06:00 Test Item Value Reference Range Interpretation Comments GLUCOSE (test code = 06D) 118 mg/dL 75-100 H SODIUM (test code = 01A) 139 mmol/L 136-145 POTASSIUM (test code = 01B) 3.4 mmol/L 3.6-5.1 L CHLORIDE (test code = 04A) 104 mmol/L 98-107 CO2 (test code = 02A) 27 mmol/L 22-32 ANION GAP (test code = ANG) 11.4 mmol/L BUN (test code = 05D) 10 mg/dL 7-18 CREATININE (test code = 03E) 0.8 mg/dL 0.4-1.1 BUN/CREA (test code = BCR) 12 12-20 CALCIUM (test code = 09D) 9.0 mg/dL 8.3-9.5 BILI TOTAL (test code = 11A) 0.2 mg/dL 0.2-1.0 PROTEIN (test code = 07D) 7.4 g/dL 6.4-8.2 ALBUMIN (test code = 08D) 3.7 g/dL 3.5-4.8 GLOBULIN (test code = GLB) 3.7 g/dL 1.5-3.8 ALB/GLOB (test code = AGRR) 1.0 1.0-2.6 ALK PHOS (test code = 35A) 71 IU/L 42-121 AST (test code = 30A) 11 IU/L <=42 ALT (test code = 31A) 17 IU/L <=78 [id number] 15:59:00 Test Item Value Reference Range Interpretation Comments SALICYLATE (test code = 94B) 3.4 mg/dL 2.8-20.0 ALCOHOL BLOOD (ETOH)2017-09-06 15:48:00 Test Item Value Reference Range Interpretation Comments ETOH (test code = HALC) ETHANOL The result is to be used only for medical purposes ALCOHOL (test code = <10 mg/dL <=10 56A) CARDIAC [id number] 15:46:00 Test Item Value Reference Range Interpretation Comments TROPONIN I (test code = A84) <0.015 ng/mL 0.000-0.045 CKMB (test code = A49) 2.6 ng/mL <=3.6 CPK (test code = 32A) 43 IU/L 26-192 [id number] 15:45:00 Test Item Value Reference Range Interpretation Comments MAGNESIUM (test code = 48A) 2.4 mg/dL 1.8-2.4 AMMONIA [id number] 15:41:00 Test Item Value Reference Range Interpretation Comments AMMONIA (test code = 54A) 16 umol/L 11-32 DRUGS OF [id number] 15:41:00 Test Item Value Reference Range Interpretation Comments DRUG SCRN (test code URINE DRUG SCREEN = HDOA) This is an unconfirmed screening result and should not be used for non-medical purposes CANNABINOD (test code Negative NEGATIVE = 88C) AMPHETAMINE (test Negative NEGATIVE code = 84A) BENZODIAZP (test code Negative NEGATIVE = 86A) BARBITURAT (test code Negative NEGATIVE = 85A) OPIATES (test code = Negative NEGATIVE 92B) COCAINE (test code = Negative NEGATIVE 87A) PHENCYCLID (test code Negative NEGATIVE = 66A) METHADONE (test code Negative NEGATIVE = 64A) DOAH (test code = DOAH) *URINE DRUG SCREEN Cut-off values are as follows: Cannabinoids 50 ng/mL Cocaine 300 ng/mL Amphetamines 1000 ng/mL Phencyclidine 25 ng/mL Benzodiazepines 200 ng.mL Methadone 300 ng/mL Barbiturates 200 ng/mL Opiates 2000 ng/mL SERUM [id number] 15:39:00 Test Item Value Reference Range Interpretation Comments PREG SRM (test code = PGS) NEGATIVE NEGATIVE CT HEAD W/O [id number] 15:37:55CT brain without contrastLocation code: [id number] HISTORY: R41.82: ALTERED MENTAL STATUS, UNSPECIFIED COMPARISON: NoneTECHNIQUE: Routine unenhanced axial imaging of the brain was performed. Coronal and sagittal reformatted images were obtained, as well. Automaticexposure control was utilized. Total DLP: 850 mGycmFINDINGS: There is no acute intracranial hemorrhage or extra-axial collection.Thereis no hydrocephalus, midline shift, or space occupying mass. Winter-whitematter differentiation is well preserved with no definite CT evidence of anacute infarct. The cranial vault and skull base are intact. The paranasal sinuses and mastoidair cells are pneumatized and well aerated. IMPRESSION: No acute intracranial abnormality.[id number] 15:36:00 Test Item Value Reference Range Interpretation Comments COLOR (test code = COLU) YELLOW YELLOW CLARITY (test code = CLA) CLEAR CLEAR GLUCOSE UR (test code = UA GLUCOSE) NEGATIVE NEGATIVE BILI UR (test code = BILE) NEGATIVE NEGATIVE KETONES UR (test code = URI) NEGATIVE NEGATIVE SP GRAVITY (test code = SPGR) 1.009 1.005-1.030 PH UR (test code = PH) 6.0 4.5-8.0 PROTEIN UR (test code = PU) NEGATIVE NEGATIVE UROBIL UR (test code = UROQ) 0.2 EU/dL 0.2-1.0 NITRITE UR (test code = NITRITE) NEGATIVE NEGATIVE BLOOD UR (test code = UA BLOOD) NEGATIVE NEGATIVE LEUK ES UR (test code = LEUK) NEGATIVE NEGATIVE AUAM (test code = AUAM) NO NO PRO TIME AND [id number] 15:32:00 Test Item Value Reference Range Interpretation Comments PT (test code = 12.1 s 9.8-13.6 TT) INR (test code = 1.1 INR) INRH (test code = SUGGESTED INRH) THERAPEUTIC RANGE FOR INR: 2.5 - 3.5 For Patients with Prosthetic Valves or Patients with recurrent Thromboembolic Events 2.0 - 3.0 For Most Other Applications PTT (test code = 27.0 s 20.2-38.0 PTT) PTTH (test code = To monitor the PTTH) effectiveness of heparin, we offer the Anti-Xa (Heparin Assay). It can be used for either unfractionated or LMW Heparin. Order Code is ANTI-XA CBC (INCLUDES AUTOMATED DIFFERENTIAL)2017-09-06 15:25:00 Test Item Value Reference Range Interpretation Comments WBC (test code = WBC) 9.1 10\\S\\3/uL 4.5-11.0 RBC (test code = RBC) 3.65 10\\S\\6/uL 4.20-5.60 L HGB (test code = HBG) 12.2 g/dL 12.0-15.5 HCT (test code = HCT) 36.7 % 35.0-44.0 MCV (test code = MCV) 100.5 fL 81.0-99.0 H MCH (test code = MCH) 33.4 pg 27.0-31.0 H MCHC (test code = MCHC) 33.2 g/dL 32.0-36.0 RDW (test code = RDW) 13.1 % 11.5-14.5 PLT (test code = PLT) 421 10\\S\\3/uL 130-400 H MPV (test code = MPV) 11.1 fL 9.4-12.4 NEUTROP # (test code = NE#) 7.7 10\\S\\3/uL 1.6-8.0 LYMPH # (test code = LY#) 1.1 10\\S\\3/uL 1.1-3.5 MONOCYTE # (test code = MO#) 0.2 10\\S\\3/uL 0.0-1.1 EOSINOPH # (test code = EO#) 0.0 10\\S\\3/uL 0.0-0.7 BASOPHIL # (test code = BA#) 0.0 10\\S\\3/uL 0.0-0.3 IG # (test code = IG#) 0.12 10\\S\\3/uL 0.00-0.06 H NRBC # (test code = NRBC#) 0.00 10\\S\\3/uL 0.00-0.01 NEUTROPH % (test code = NE%) 84.2 % 35.0-73.0 H LYMPH % (test code = LY%) 12.3 % 20.0-55.0 L MONO % (test code = MO%) 1.9 % 2.5-10.0 L EOSINOPH % (test code = EO%) 0.1 % 0.0-5.0 BASOPHIL % (test code = BA%) 0.2 % 0.0-2.0 IG % (test code = IG%) 1.3 % 0.0-0.8 H NRBC% (test code = NRBC%) 0.0 % 0.0-0.2 MANDIFF (test code = MDIFF) NO NO RBC MORPH (test code = RBCMOR) NORMAL XR CHEST 2 [id number] 15:00:43PA and lateral chest, 2 views.Location code: [id number] HISTORY: Chest painCOMPARISON: NoneCOMMENTS: The lungs are clear and well inflated. The costophrenic angles aresharp. The cardiomediastinal silho uette is unremarkable. The bones are intact.IMPRESSION: No acute abnormality"
[2021-09-20 12:36] LABS: Absolute Lymphocytes (CBC) 0.9 K/uL (0.7-4.9); Hematocrit 34.5 % (36.0-45.0); Lymphocytes % 13.8 % (15.3-44.8); MPV 10.3 fL (7.6-11.3); RBC Red Blood Cell Count 3.42 M/uL (3.86-4.86)
[2021-09-20 12:43] LABS: Protime INR 1.2
[2021-09-20 12:58] LABS: ALT/SGPT 24 U/L (12-78); AST/SGOT 23 U/L (15-37); Albumin 3.1 g/dL (3.4-5.0); Alkaline Phosphatase 78 U/L (45-117); BUN Blood Urea Nitrogen 8 mg/dL (7-18); Bicarbonate 24 mmol/L (21-32); Bilirubin Direct 0.2 mg/dL (0-0.2); Bilirubin Total 0.7 mg/dL (0.2-1.0); Glomerular Filtration Rate 89 ml/min (=/>90); Glucose Level 114 mg/dL (74-106); Protein, Total 6.6 g/dL (6.4-8.2); Sodium Level 132 mmol/L (136-145)
[2021-09-20 13:00] LABS: Potassium 2.2 mmol/L (3.5-5.1)
--- NOTE | 2021-09-20 13:25 | RAD REPORT ---
EXAM DESCRIPTION: CT - Head Brain Wo Cont - 09/20/2021 1:12 pm CLINICAL HISTORY: Mental status change, unknown cause COMPARISON: CT FACIAL BONES W CON MPR dated 02/06/2015; HEAD BRAIN W O CONTRAST dated 03/16/2013 TECHNIQUE: Axial 5 mm thick images of the head were obtained without IV contrast. All CT scans are performed using dose optimization technique as appropriate and may include automated exposure control or mA/KV adjustment according to patient size. FINDINGS: No intracranial hemorrhage, mass, edema or shift of mid-line structures. No acute infarcti on changes seen. No abnormal extra-axial fluid collections. Ventricles are normal. Slight asymmetry o f the occipital horns of each lateral ventricle is a normal variant unchanged from comparison. Mastoid air cells and visualized portions of the paranasal sinuses are clear. No acute bony findings. No significant change from the 2013 study. IMPRESSION: Negative non-contrast CT head examination.
[2021-09-20] MEDS ORDERED: KCL 20 MEQ/100 mL IVPB 100 ML IV ONE (15:06)
[2021-09-20] MEDS ORDERED: NA CHLORIDE 0.9% 250 ML ONE (15:06)
[2021-09-20] MEDS ORDERED: NA CHLORIDE 0.9% 1,000 ML ONE (15:20)
--- NOTE | 2021-09-20 17:38 | EDPHYS ---
Physician Documentation [facility] Name: Sophia Blanco Age: 56 yrs Sex: Female : 1965 Arrival Date: 09/20/2021 Time: 11:44 Bed 24 Private MD: ED Physician Adolfo Resendez HPI: 09/20 11:54 This 56 yrs old Female presents to ER via Unassigned with complaints of AMS. rn 11:55 The patient presents with agitation. Onset: The symptoms/episode began/occurred at an rn unknown time. Possible causes: unknown. Current symptoms: In the emergency department the patient's symptoms have improved. It is unknown whether or not the patient has had similar symptoms in the past. It is unknown whether or not the patient has recently seen a physician. Pt brought in by police and EMS for agitation, was found on streets by police, blank stare and seemed to be acting funny, then became very agitated and combative per police report. EMS arrived on scene, then patient became more calm, placed in handcuffs, no sedation required up to this point.. Historical: - Allergies: 11:59 Unable to obtain; ph - PMHx: 11:59 Back pain; Chronic pain; Fibromyalgia; Headaches; Lupus; ph - Immunization history:: Adult Immunizations unknown. - Social history:: Smoking status: unknown. - Unable to obtain history due to: altered mental status, patient being uncooperative. ROS: 11:55 Unable to obtain ROS due to altered mental status, patient being uncooperative. rn Exam: 11:55 Constitutional: Disheveled patient, in handcuffs, skin tears to wrists. Head/Face: rn Normocephalic, atraumatic. Eyes: Pupils equal round and reactive to light, extra-ocular motions intact. Cardiovascular: Tachycardic, regular. No pulse deficits. Respiratory: No increased work of breathing, no retractions or nasal flaring. Abdomen/GI: Soft, non-tender Skin: Warm, dry MS/ Extremity: Pulses equal, no cyanosis. Neuro: Uncooperative, moves all 4 extremities, states "I don't want to talk to you". Vital Signs: 11:51 BP 113 / 72; Pulse 107; Resp 18; Temp 97.8; Pulse Ox 88% on R/A; Weight 72.57 kg; ph Height 5 ft. 6 in. (167.64 cm); 13:15 BP 129 / 84; Pulse 90; Resp 16; Pulse Ox 94% on 4 lpm NC; ph 14:44 BP 115 / 80; Pulse 76; Resp 16; Pulse Ox 95% on 2 lpm NC; ph 15:29 BP 128 / 98; Pulse 76; Resp 18; Pulse Ox 99% on R/A; ph 16:30 BP 136 / 88; Pulse 71; Resp 18; Pulse Ox 100% on R/A; ph 18:07 BP 136 / 88; Pulse 72; Resp 18; Pulse Ox 99% on R/A; ph 19:21 BP 116 / 83; Pulse 76; Resp 16; Pulse Ox 100% on R/A; as6 11:51 Body Mass Index 25.82 (72.57 kg, 167.64 cm) ph MDM: 11:45 Patient medically screened. rn 16:27 Differential Diagnosis: electrolyte abnormality, alcohol intoxication, hypoglycemia, rn overdose, volume depletion. Data reviewed: vital signs, nurses notes, lab test result(s), EKG. Counseling: I had a detailed discussion with the patient and/or guardian regarding: the historical points, exam findings, and any diagnostic results supporting the discharge/admit diagnosis, lab results. Response to treatment: the patient's symptoms have markedly improved after treatment. ED course: Pt more alert, cooperative, police left, no longer restrained, normal vitals, apologetic. . 17:37 ED course: pt continues to refuse urine testing. . rn 09/20 11:45 Order name: Acetaminophen; Complete Time: 15:55 rn 09/20 11:45 Order name: Basic Metabolic Panel; Complete Time: 15:55 09/20 11:45 Order name: CBC with Diff; Complete Time: 14:00 09/20 11:45 Order name: ETOH Level; Complete Time: 14:00 09/20 11:45 Order name: Hepatic Function; Complete Time: 15:55 09/20 11:45 Order name: PT-INR; Complete Time: 14:00 09/20 11:45 Order name: Ptt, Activated; Complete Time: 14:00 rn 09/20 11:45 Order name: Salicylate; Complete Time: 14:00 rn 09/20 11:45 Order name: Urine Drug Screen rn 09/20 11:45 Order name: CT Head Brain wo Cont rn 09/20 11:49 Order name: Head Brain Wo Cont; Complete Time: 14:00 EDMS 09/20 11:55 Order name: SARS-COV-2 RT PCR (Document "Date of Onset" if Symptomatic); Complete Time: rn 17:28 09/20 11:55 Order name: Flu; Complete Time: 14:00 rn 09/20 11:45 Order name: EKG; Complete Time: 11:46 rn 09/20 11:45 Order name: EKG - Nurse/Tech; Complete Time: 12:04 rn 09/20 11:45 Order name: IV Saline Lock; Complete Time: 11:46 rn 09/20 11:45 Order name: Labs collected and sent; Complete Time: 11:46 rn Administered Medications: 15:29 Drug: Potassium Chloride 20 mEq Route: IV; Rate: calculated rate; Site: left hand; ph 19:14 Follow up: Response: No adverse reaction; IV Status: Completed infusion ph 15:29 Drug: NS 0.9% 1000 ml Route: IV; Rate: 1000 ml; Site: left hand; ph 19:14 Follow up: Response: No adverse reaction; IV Status: Completed infusion ph Disposition Summary: 09/20/21 17:37 Discharge Ordered Location: Home rn Problem: new rn Symptoms: have improved rn Condition: Stable rn Diagnosis - Restlessness and agitation rn - Dehydration rn - Hypokalemia rn Followup: rn - With: Private Physician - When: As needed - Reason: Recheck today's complaints, Re-evaluation by your physician Discharge Instructions: - Discharge Summary Sheet rn - Dehydration, Adult rn - Hypokalemia rn Forms: - Medication Reconciliation Form rn - Thank You Letter rn - 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
--- NOTE | 2021-09-20 17:38 | ER ---
Nurse's Notes [facility] Name: Sophia Blanco Age: 56 yrs Sex: Female : 1965 Arrival Date: 09/20/2021 Time: 11:44 Bed 24 Private MD: Diagnosis: Restlessness and agitation;Dehydration;Hypokalemia Presentation: 09/20 11:51 Chief complaint: EMS states: Pt found by PD unconscious on the side of the road, became ph combative w/ police during questioning, was also combative w/ EMS, pt unconscious upon arrival to ED, no meds given by EMS, VSS other than HR 120s. Coronavirus screen: Vaccine status: Patient reports being unvaccinated. Ebola Screen: No symptoms or risks identified at this time. Initial Sepsis Screen: Does the patient meet any 2 criteria? No. Patient's initial sepsis screen is negative. Does the patient have a suspected source of infection? No. Patient's initial sepsis screen is negative. Risk Assessment: Do you want to hurt yourself or someone else? Patient reports no desire to harm self or others. Onset of symptoms was September 20, 2021. 11:51 Method Of Arrival: EMS: [facility] 11:51 Acuity: BENNY 2 ph Triage Assessment: 11:59 General: Appears in no apparent distress. comfortable, Behavior is drowsy, quiet, ph uncooperative, grass noted in hair, pt awakens to tactile stimuli, mumbles, " Fuck you" then falls back asleep, handcuffs in place, PD at bedside. Pain: Unable to use pain scale. Patient is disoriented. Neuro: Level of Consciousness is confused, obtunded, Oriented to person. Cardiovascular: Capillary refill < 3 seconds in bilateral fingers. Respiratory: Airway is patent Respiratory effort is even, unlabored. Derm: Skin is diaphoretic, Skin is normal, Wound noted abrasions to bilateral wrists d/t handcuffs. Musculoskeletal: Circulation, motion, and sensation intact. Range of motion: intact in all extremities. Historical: - Allergies: Unable to obtain; ph - PMHx: 11:59 Back pain; Chronic pain; Fibromyalgia; Headaches; Lupus; ph - Immunization history:: Adult Immunizations unknown. - Social history:: Smoking status: unknown. - Unable to obtain history due to: altered mental status, patient being uncooperative. Screenin:59 Abuse screen: Denies threats or abuse. Denies injuries from another. Nutritional ph screening: No deficits noted. Tuberculosis screening: No symptoms or risk factors identified. Fall Risk None identified. Assessment: 12:02 Reassessment: Pt uncooperative w/ ED interventions, after explaining to pt why these ph interventions had to be done pt mumbled, " Fuck you motherfuckers, that [id number] set me up." Then falls back asleep, pt placed in soft wrist restraints for safety of staff and pt. 12:30 Reassessment: Pt did not attempt to become combative w/ staff during IV start or EKG, ph soft restraints removed. 13:14 Reassessment: Patient appears in no apparent distress at this time. Patient and/or ph family updated on plan of care and expected duration. Pain level reassessed. Pt returned from CT, remains asleep w/ stable VS. 14:30 Reassessment: Patient appears in no apparent distress at this time. No changes from ph previously documented assessment. Patient and/or family updated on plan of care and expected duration. Pain level reassessed. 15:24 Reassessment: Patient appears in no apparent distress at this time. Patient and/or ph family updated on plan of care and expected duration. Pain level reassessed. Pt asleep, awakens easily, asked pt to provide urine sample and pt declined, informed pt that we could catheterize her to obtain specimen and she replied, "Fuck you, you are not." Then went back to sleep, provider notified of refusal, fluid bolus ordered in attempt to cause need to urinate. VSS will continue to monitor. 17:00 Reassessment: Patient appears in no apparent distress at this time. No changes from ph previously documented assessment. Patient and/or family updated on plan of care and expected duration. Pain level reassessed. 18:07 Reassessment: Patient appears in no apparent distress at this time. Patient and/or ph family updated on plan of care and expected duration. Pain level reassessed. Pt asleep w/ even respirations, d/c pending completion of IV meds. 19:13 Reassessment: Attempted to awaken pt for d/c home, pt will briefly wake up but quickly ph falls back asleep, provided a contact # of [phone] for ride home. 21:04 Reassessment: Pt is resting in bed with eyes closed, respirations are even and jb4 unlabored with no s/s of pain or distress noted. 21:08 Reassessment: Attempted to call provider contact number twice. Each time went to voice jb4 mail. Left a message asking for them to call the ED back. Will try to contact again later. Patient denies pain at this time. 21:18 Reassessment: Contact number provided was for Ramu Blanco, who reports being unable to jb4 come and get her at this time due to being unable to drive at night. Vital Signs: 11:51 BP 113 / 72; Pulse 107; Resp 18; Temp 97.8; Pulse Ox 88% on R/A; Weight 72.57 kg; ph Height 5 ft. 6 in. (167.64 cm); 13:15 BP 129 / 84; Pulse 90; Resp 16; Pulse Ox 94% on 4 lpm NC; ph 14:44 BP 115 / 80; Pulse 76; Resp 16; Pulse Ox 95% on 2 lpm NC; ph 15:29 BP 128 / 98; Pulse 76; Resp 18; Pulse Ox 99% on R/A; ph 16:30 BP 136 / 88; Pulse 71; Resp 18; Pulse Ox 100% on R/A; ph 18:07 BP 136 / 88; Pulse 72; Resp 18; Pulse Ox 99% on R/A; ph 19:21 BP 116 / 83; Pulse 76; Resp 16; Pulse Ox 100% on R/A; as6 11:51 Body Mass Index 25.82 (72.57 kg, 167.64 cm) ph ED Course: 11:44 Patient arrived in ED. rn 11:45 Adolfo Resendez MD is Attending Physician. rn 11:51 Juana Cerna, L[place] is Primary Nurse. ph 11:58 Triage completed. ph 11:59 Arm band placed on Patient placed in an exam room, on a stretcher, on oxygen, on ph analog ic design architect, on pulse oximetry. 12:02 Patient has correct armband on for positive identification. Placed in gown. Bed in low ph position. Call light in reach. Side rails up X2. Client placed on continuous cardiac and pulse oximetry monitoring. NIBP monitoring applied. 12:15 Inserted saline lock: 22 gauge in left hand, using aseptic technique. Blood collected. ll1 13:14 Head Brain Wo Cont In Process Unspecified. EDMS 15:29 No provider procedures requiring assistance completed. ph 21:21 IV discontinued, intact, bleeding controlled, No redness/swelling at site. Pressure jb4 dressing applied. Administered Medications: 15:29 Drug: Potassium Chloride 20 mEq Route: IV; Rate: calculated rate; Site: left hand; ph 19:14 Follow up: Response: No adverse reaction; IV Status: Completed infusion ph 15:29 Drug: NS 0.9% 1000 ml Route: IV; Rate: 1000 ml; Site: left hand; ph 19:14 Follow up: Response: No adverse reaction; IV Status: Completed infusion ph Medication: 11:59 VIS not applicable for this client. ph Outcome: 17:37 Discharge ordered by . rn 21:21 Discharged to Pt remains in room to rest until morning when her ride can come and pick jb4 her up. 21:21 Condition: stable 21:21 Discharge instructions given to patient, Instructed on discharge instructions, follow up and referral plans. Demonstrated understanding of instructions, follow-up care. 21:25 Patient left the ED. jb4 Signatures: Dispatcher [employer] EDMS Adolfo Resendez MD MD rn Hall, Patricia, RN RN Richy Jacobson RN RN jb4 Derrick Hall RN RN ll1 Shahzad Posey RN RN as6
[2021-09-20 23:11] VITALS: BP 129/84; O2SAT 94
--- NOTE | 2021-09-21 08:55 | EKG ---
Test Date: 2021-09-20 Test Time: 11:56:57 Loader: COLLEEN MEASUREMENT RESULTS: Intervals: Rate: 103 WI: 144 QRSD: 88 QT: 396 QTc: 518 [place]: P: 64 WI: 144 QRS: 66 T: 31 INTERPRETIVE STATEMENTS: Sinus tachycardia Nonspecific ST and T wave abnormality Abnormal ECG Compared to ECG 10/02/2007 18:27:27 ST (T wave) deviation now present Sinus rhythm no longer present T-wave abnormality no longer present Electronically Signed On 09-21-21 08:52:30 CDT by Jc Mcguire
== END 2021-09-20 21:25 | disposition home or self-care (01) ==
LOC: ER 11:43
DX: E86.0 Dehydration (principal); E87.6 Hypokalemia; Z20.822 Contact with and (suspected) exposure to COVID-19
CPT/HCPCS: 85025; 80048; 36415; 80320; 80329 ×2; 85610; 80076; 85730; 87804 ×2; 70450; U0003; J3480; J7050; J7030; 93005